=== PATIENT | female | born 1990 | race Caucasian/White ===

== ENCOUNTER → 2020-04-28 13:28 | Outpatient (BNVA) | payer MEDICAID, SELFPAY | PROVIDERS: Visit Provider Advanced Practice Midwife | DX: Z32.01 Encounter for pregnancy test, result positive (principal) | CPT/HCPCS: 99212 ==

== ENCOUNTER → 2020-06-10 14:00 | Outpatient (BNVA) | payer MEDICAID, SELFPAY | PROVIDERS: Visit Provider Advanced Practice Midwife | CPT/HCPCS: 99212 ==

== ENCOUNTER 2020-06-18 12:52 | Outpatient (REF) | payer MEDICAID, SELFPAY ==
[2020-06-18 16:33] LABS: CT PCR NOT DETECTED (Not Detect.); NG PCR NOT DETECTED (Not Detect.)
[2020-06-18 18:13] LABS: MANUAL DIFF FLAG NO
[2020-06-18 18:21] LABS: Basophils Percent Auto 0.2 % (0-2); Eosinophils Absolute Auto 0.1 X10*3/uL (0.0-0.4); Eosinophils Percent Auto 1.2 % (0-4); Hemoglobin 11.4 g/dl (12.0-16.0); Imm Gran Abs Auto 0.02 X10*3/uL (0.00-0.03); Imm Gran Pct Auto 0.2 % (0.0-0.4); Lymphocytes Absolute Auto 1.6 X10*3/uL (1.2-4.9); Lymphocytes Percent Auto 17.5 % (20-40); Mean Corpuscular HGB Conc 32.6 g/dl (31.0-35.0); Mean Corpuscular Hemoglobin 26.8 pg (27.0-33.0); Mean Corpuscular Volume 82.2 fL (80-98); Mean Platelet Volume 12.1 fL (9.4-12.3); Monocytes Absolute Auto 0.4 X10*3/uL (0.1-1.2); Monocytes Percent Auto 4.6 % (2-11); Neutrophils Absolute Auto 6.8 X10*3/uL (2.0-8.3); Neutrophils Percent Auto 76.3 % (45-73); Platelet Count 223 X10*3/uL (160-400); Red Blood Count 4.26 X10*6/uL (4.20-5.50); Red Cell Distribution Width 14.6 % (11.0-16.0); White Blood Count 8.9 X10*3/uL (4.8-10.8)
[2020-06-18 18:35] LABS: Glucose 1 Hour PP 50gm Dose 72 mg/dL (60-140)
[2020-06-18 18:46] LABS: Amphetamine Screen Urine Not Detected (Not Detect); Barbiturates, Urine Not Detected (Not Detect); Benzodiazepines Screen Urine Not Detected (Not Detect); Cannabinoid Screen Urine Not Detected (Not Detect); Cocaine Screen Urine Not Detected (Not Detect); Opiate Screen Urine Not Detected (Not Detect); Phencyclidine Screen Urine Not Detected (Not Detect)
[2020-06-18 19:01] LABS: Syphilis Screen Nonreactive (Nonreactive)
[2020-06-19 09:32] LABS: HIV AB/AG Nonreactive (Nonreactive); HIV Num 1 0.06 S/CO (0.00-0.99); ~Hepatitis C Antibody Nonreactive (Nonreactive)
[2020-06-19 09:39] LABS: HBsAGNum1 0.19 S/CO (0.00-0.99); Hepatitis B Surface Antigen Negative (Negative)
[2020-06-19 15:13] LABS: BV Int Neg Control Negative (Negative); BV Int Pos Control Positive (Positive)
== END 2020-06-18 12:53 | disposition home or self-care (01) ==
LOC: HO.LAB 12:52
PROVIDERS: PCP Family Medicine; Visit Provider Advanced Practice Midwife
DX: O99.891 Other specified diseases and conditions complicating pregnancy (principal); M54.9 Dorsalgia, unspecified; N89.8 Other specified noninflammatory disorders of vagina; Z20.2 Contact with and (suspected) exposure to infections with a predominantly sexual mode of transmission
CPT/HCPCS: 80307; 81003; 85025; 86762; 86780; 86787; 86803; 86850; 86900; 86901; 87086; 87340; 87389; 87480; 87491; 87510; 87591; 87660; 88142; 99212

== ENCOUNTER 2020-06-24 10:35 | Outpatient (REF) | payer MEDICAID, SELFPAY ==
--- NOTE | ~2020-06-24 | US_ITS ---
EXAMINATION: US OB LIMITED CLINICAL INFORMATION: Size and dates. COMPARISON: None TECHNIQUE: Transabdominal imaging of the pelvis is performed. FINDINGS: The fetus is in longitudinal lie with likely breech presentation. On biometry, The biparietal diameter measures 3.55 cm corresponding to 17 weeks 0 days Occipital frontal diameter measures 4.49 cm corresponding to 16 weeks 6 days Head circumference measures 13.35 cm corresponding to 17 weeks 0 days Abdominal circumference measures 10.95 cm corresponding to 16 weeks 6 days Femoral length measures 2.09 cm corresponding to 16 weeks 2 days. The composite ultrasound gestational age measures 16 weeks 6 days and EDWIN of 12/03/2020. There is movement. heart rate measures 138 bpm. The placenta is anterior. The estimated weight is 162 g which corresponds to 0 lbs and 6 ounces. This corresponds to 87 LMP percentile. There is adequate amniotic fluid. US/US OB limited IMPRESSION: Single live intrauterine fetus in breech presentation. The gestational age corresponds to 16 weeks 6 days and EDWIN of 12/03/2020.
== END 2020-06-24 10:36 | disposition home or self-care (01) ==
LOC: HO.US 10:35
PROVIDERS: Visit Provider Advanced Practice Midwife
DX: Z34.90 Encounter for supervision of normal pregnancy, unspecified, unspecified trimester (principal)
CPT/HCPCS: 76815

== ENCOUNTER → 2020-07-16 13:50 | Outpatient (BNVA) | payer MEDICAID, SELFPAY | PROVIDERS: PCP Family Medicine; Visit Provider Advanced Practice Midwife | DX: O35.9XX0 Maternal care for (suspected) fetal abnormality and damage, unspecified, not applicable or unspecified (principal); Z3A.18 18 weeks gestation of pregnancy | CPT/HCPCS: 81003; 99212 ==

== ENCOUNTER 2020-07-23 11:03 | Outpatient (REF) | payer MEDICAID, SELFPAY ==
--- NOTE | ~2020-07-23 | US_ITS ---
EXAMINATION: US OBSTETRICAL CLINICAL INFORMATION: 30-year-old at 21.0 weeks of gestation Insufficient care Screening for anomaly COMPARISON: 06/24/2020 TECHNIQUE: Real-time transabdominal ultrasound was performed using C1-5 megahertz transducer. FINDINGS: A single, active, fetus is seen in breech presentation. The placenta is anterior without previa, and the amniotic fluid volume is wnl. MEASUREMENTS: 1. Biparietal Diameter: 4.7 cm; 20.2 wks 2. Occipital Frontal Diameter: 6.3 cm 3. Head Circumference: 18.0 cm; 20.4 wks 4. Abdominal Circumference: 16.6 cm; 21.5 wks 5. Femur Length: 3.4 cm; 20.5 wks 6. Humerus Length: 2.3 cm; 21.1 wks 7. Tibia Length: 3.2 cm; 21.5 wks 8. Ulna Length: 3.3 cm; 22.5 wks 9. Lateral ventricle: 0.6 cm 10. Cerebellum: 1.95 cm; 20.0 wks 11. Cisterna Magna: 0.5 cm 12. Nuchal Fold: 5.9 mm 13. Heart Rate: 142 beats per minute Rt ovary: normal Lt ovary: normal Cervical length 6.4 cm on T/A. GESTATIONAL AGE: 1. Established GA: 21.0 wks 2. GA from [facility]: 20.6 wks ESTIMATED DATE OF DELIVERY: 1. Established EDWIN: 12/03/2020 2. EDWIN from [facility]: 12/04/2020 ANATOMY: The visualized anatomy includes but not limited to: 1. Cranium: Normal 2. Intracranial anatomy: cavum septum pellucidi, lateral ventricles, choroid plexus, cerebellum, posterior fossa, third and fourth ventricles. 3. face: orbits, lip/palate, profile, nasal bone 4. Heart: four-chamber view of the heart, ventricular septum, foramen ovale, pulmonary vein, left and right outflow tracts, three-vessel view, 3 vessel trachea view, aortic and ductal arches, situs.. 5. Diaphragm: Normal 6. Abdominal wall: Normal 7. Cord Insertion: Normal 8. Spine: Cervical, thoracic, lumbar, sacral. 9. Stomach: Normal size and shape 10. Right Kidney: Normal 11. Left Kidney: Normal 12. 3 vessel cord: Normal 13. Upper extremity: Open hands, fifth digit. 14. Lower extremity: Tibia, fibula, bilateral feet. 15. Bladder: Normal 16. Genitalia: Female, patient aware US/US OB /maternal det add IMPRESSION: 1. Single, living, intrauterine with appropriate biometry. 2. Normal survey DISCUSSION: I reviewed today's ultrasound findings. We discussed the limitations of ultrasound in diagnosing aneuploidy and other congenital abnormalities. I reviewed the differences between screening test and diagnostic test. Amniocentesis was discussed and declined. She was informed that the baseline incidence of congenital abnormalities is approximately 3-5%. Not all these conditions are diagnosable in utero. RECOMMENDATIONS: 1. f/u PRN Thank you for allowing me to participate in her care. Total time 20 minutes. The time spent was devoted to counseling the patient about the disease and diagnosis, coordinating care including reviewing her records, pertinent lab data and studies, as well as discussing diagnostic evaluation and workup, plan therapeutic interventions and future disposition of care. This includes any additional research needed to obtain further information in formulating the plan of care of this patient. This note was generated with a voice recognition program. Please excuse any errors which may have been overlooked during my review of this note. Sometimes these errors may affect the content or meaning of a given sentence.
== END 2020-07-23 11:04 | disposition home or self-care (01) ==
LOC: HO.US 11:03
PROVIDERS: Visit Provider Advanced Practice Midwife
DX: O35.9XX0 Maternal care for (suspected) fetal abnormality and damage, unspecified, not applicable or unspecified (principal); O09.32 Supervision of pregnancy with insufficient antenatal care, second trimester; Z3A.21 21 weeks gestation of pregnancy
CPT/HCPCS: 76812

== ENCOUNTER → 2020-08-20 10:05 | Outpatient (BNVA) | payer MEDICAID, SELFPAY | PROVIDERS: PCP Family Medicine; Visit Provider Advanced Practice Midwife | DX: O99.212 Obesity complicating pregnancy, second trimester (principal); E66.8 Other obesity; Z3A.23 23 weeks gestation of pregnancy | CPT/HCPCS: 81003; 99212 ==

== ENCOUNTER 2020-09-17 10:02 | Outpatient (REF) | payer MEDICAID, SELFPAY ==
[2020-09-17 13:42] LABS: Hematocrit 31.6 % (37-47); Hemoglobin 10.4 g/dl (12.0-16.0); Mean Corpuscular HGB Conc 32.9 g/dl (31.0-35.0); Mean Corpuscular Hemoglobin 27.7 pg (27.0-33.0); Mean Corpuscular Volume 84.3 fL (80-98); Mean Platelet Volume 11.1 fL (9.4-12.3); Platelet Count 229 X10*3/uL (160-400); Red Blood Count 3.75 X10*6/uL (4.20-5.50); Red Cell Distribution Width 13.7 % (11.0-16.0); White Blood Count 9.4 X10*3/uL (4.8-10.8)
[2020-09-17 14:20] LABS: Glucose 1 Hour PP 50gm Dose 73 mg/dL (60-140)
[2020-09-17 14:39] LABS: Syphilis Screen Nonreactive (Nonreactive)
== END 2020-09-17 10:03 | disposition home or self-care (01) ==
LOC: HO.LAB 10:02
PROVIDERS: PCP Family Medicine; Visit Provider Advanced Practice Midwife
DX: O99.212 Obesity complicating pregnancy, second trimester (principal); E66.8 Other obesity; Z3A.27 27 weeks gestation of pregnancy
CPT/HCPCS: 36415; 81003; 85027; 86780; 99212

== ENCOUNTER → 2020-10-01 10:11 | Outpatient (BNVA) | payer MEDICAID, SELFPAY | PROVIDERS: PCP Family Medicine; Visit Provider Advanced Practice Midwife | DX: O99.013 Anemia complicating pregnancy, third trimester (principal); D64.9 Anemia, unspecified; O99.213 Obesity complicating pregnancy, third trimester; E66.8 Other obesity; Z3A.29 29 weeks gestation of pregnancy | CPT/HCPCS: 99212 ==

== ENCOUNTER → 2020-10-08 13:56 | Outpatient (BNVA) | payer MEDICAID, SELFPAY | PROVIDERS: Visit Provider Advanced Practice Midwife | DX: O09.93 Supervision of high risk pregnancy, unspecified, third trimester (principal); O99.213 Obesity complicating pregnancy, third trimester; E66.8 Other obesity; Z3A.30 30 weeks gestation of pregnancy | CPT/HCPCS: 59025; 99212 ==

== ENCOUNTER 2020-10-15 14:03 | Outpatient (REF) | payer MEDICAID, SELFPAY ==
--- NOTE | ~2020-10-15 | US_ITS ---
EXAMINATION: OBSTETRICAL ULTRASOUND, Follow up HISTORY: 30-year-old at 33.0 weeks of gestation High BMI Size date discrepancy COMPARISON: 07/23/2020 TECHNIQUE: Real time transabdominal imaging with color and M-mode Doppler. PRESENTATION: Vertex PLACENTA LOCATION: Anterior without previa AMNIOTIC FLUID: ZACARIAS 6.2 cm MEASUREMENTS: 1. Biparietal Diameter: 8.3 cm; 33.3 wks 2. Head Circumference: 31.2 cm; 34.6 wks 3. Abdominal Circumference: 29.5 cm; 33.4 wks 4. Femur Length: 6.3 cm; 32.4 wks 5. Heart Rate: 155 beats per minute WEIGHT: EFW: 2171 grams (4 lbs 13 oz) -- 51 %. BIOPHYSICAL PROFILE: Motion: 2 Tone: 2 Breathin Amniotic Fluid: 2 Total score: 10/17 GESTATIONAL AGE: 1. Established GA: 33.0 wks 2. GA from AUA: 33.5 wks ESTIMATED DATE OF DELIVERY: 1. Established EDWIN: 12/03/2020 2. EDWIN from AUA: 11/28/2020 US/ OB follow up IMPRESSION: 1. A single active fetus is in vertex presentation 2. Size equals dates 3. BPP 10/17 4. ZACARIAS is at the low end of normal. She is reporting increased the vaginal discharge. Reports that the discharge is the heaviest overnight and she has to wear a pad. Denies contractions, intrauterine tenderness or fever. I informed the patient that the ZACARIAS is at the low end of normal. Given that she is experiencing increased vaginal discharge, I suggest that she proceed to your office for rule out the rupture membranes. She is to return in 2 weeks for follow-up evaluation if she rules out for rupture membranes. Thank you very much for this referral. Total time 30 minutes. The time spent was devoted to counseling the patient about the disease and diagnosis, coordinating care including reviewing her records, pertinent lab data and studies, as well as discussing diagnostic evaluation and workup, plan therapeutic interventions and future disposition of care. This includes any additional research needed to obtain further information in formulating the plan of care of this patient. This note was generated with a voice recognition program. Please excuse any errors which may have been overlooked during my review of this note. Sometimes these errors may affect the content or meaning of a given sentence.
== END 2020-10-15 14:04 | disposition home or self-care (01) ==
LOC: HO.US 14:03
PROVIDERS: Visit Provider Advanced Practice Midwife
DX: O36.63X0 Maternal care for excessive fetal growth, third trimester, not applicable or unspecified (principal); O99.213 Obesity complicating pregnancy, third trimester; E66.8 Other obesity; O26.893 Other specified pregnancy related conditions, third trimester; N89.8 Other specified noninflammatory disorders of vagina; O26.843 Uterine size-date discrepancy, third trimester; Z3A.33 33 weeks gestation of pregnancy
CPT/HCPCS: 76816; 99212

== ENCOUNTER 2020-10-15 16:12 | Outpatient (REF) | payer MEDICAID, SELFPAY ==
[2020-10-15 20:37] LABS: Fetal Fibronectin Negative (Negative)
[2020-10-16 02:28] LABS: CT PCR NOT DETECTED (Not Detect.); NG PCR NOT DETECTED (Not Detect.)
[2020-10-16 10:58] LABS: BV Int Neg Control Negative (Negative); BV Int Pos Control Positive (Positive)
== END 2020-10-15 16:13 | disposition home or self-care (01) ==
LOC: HO.LAB 16:12
PROVIDERS: Visit Provider Advanced Practice Midwife
DX: O36.80X0 Pregnancy with inconclusive fetal viability, not applicable or unspecified (principal); Z3A.33 33 weeks gestation of pregnancy
CPT/HCPCS: 82731; 87081; 87147; 87480; 87491; 87510; 87591; 87660

== ENCOUNTER 2020-10-22 13:26 | Outpatient (REF) | payer MEDICAID, SELFPAY ==
--- NOTE | ~2020-10-22 | US_ITS ---
EXAMINATION: US OBSTETRICAL (BIOPHYSICAL PROFILE) CLINICAL INFORMATION: 30-year-old at the 34.0 weeks of gestation High BMI COMPARISON: 10/15/1990 TECHNIQUE: Biophysical profile is performed over 30 minutes with assessment of breathing, gross body movement, tone, and qualitative amniotic fluid volume. FINDINGS: POSITION: Cephalic PLACENTA: Anterior without previa AMNIOTIC FLUID INDEX: 8.9 cm CARDIAC ACTIVITY: 136 beats per minute BIOPHYSICAL PROFILE: Motion: 2 Tone: 2 Breathin Amniotic Fluid: 2 The total biophysical score is 8/8 US/US OB biophysical profile IMPRESSION: 1. Single intrauterine gestation in vertex position. 2. Reassuring BPP and ZACARIAS Thank you for allowing me to participate in her care. This note was generated with a voice recognition program. Please excuse any errors which may have been overlooked during my review of this note. Sometimes these errors may affect the content or meaning of a given sentence.
== END 2020-10-22 13:27 | disposition home or self-care (01) ==
LOC: HO.US 13:26
PROVIDERS: PCP Family Medicine; Visit Provider Advanced Practice Midwife
DX: O36.63X0 Maternal care for excessive fetal growth, third trimester, not applicable or unspecified (principal); O99.213 Obesity complicating pregnancy, third trimester; E66.8 Other obesity; Z3A.34 34 weeks gestation of pregnancy
CPT/HCPCS: 76819

== ENCOUNTER → 2020-10-26 10:08 | Outpatient (BNVA) | payer MEDICAID, SELFPAY | PROVIDERS: Visit Provider Advanced Practice Midwife | DX: O09.893 Supervision of other high risk pregnancies, third trimester (principal); O26.893 Other specified pregnancy related conditions, third trimester; R12 Heartburn; Z3A.34 34 weeks gestation of pregnancy | CPT/HCPCS: 59025; 81003; 99212 ==

== ENCOUNTER 2020-10-26 11:05 | Outpatient (REF) | payer MEDICAID, SELFPAY ==
--- NOTE | ~2020-10-26 | US_ITS ---
EXAMINATION: US OBSTETRICAL (BIOPHYSICAL PROFILE) CLINICAL INFORMATION: Ultrasound OB biophysical profile. COMPARISON: Ultrasound OB biophysical profile 10/22/2020 TECHNIQUE: Ultrasound of the pelvis is performed. Biophysical profile is performed over 30 minutes with assessment of breathing, gross body movement, tone, and qualitative amniotic fluid volume. Each matrix is scored 0 or 2, depending if the metric is present. Maximum total score possible is 8. Examination is not intended to assess for anomalies. FINDINGS: POSITION: Cephalic PLACENTA: Anterior AMNIOTIC FLUID INDEX: 11.0 cm CARDIAC ACTIVITY: 132 beats per minute BIOPHYSICAL PROFILE: Motion: 2 Tone: 2 Breathin Amniotic Fluid: 2 Total score: 8/8 US/US OB biophysical profile IMPRESSION: 1. Single intrauterine gestation in cephalic position with anterior placenta. 2. Total biophysical score is 8/8 (scale 0-8). 3. Amniotic fluid index 11.0 cm. 4. cardiac activity 132 beats per minute.
== END 2020-10-26 11:06 | disposition home or self-care (01) ==
LOC: HO.US 11:05
PROVIDERS: PCP Family Medicine; Visit Provider Advanced Practice Midwife
DX: O36.8390 Maternal care for abnormalities of the fetal heart rate or rhythm, unspecified trimester, not applicable or unspecified (principal); Z3A.00 Weeks of gestation of pregnancy not specified
CPT/HCPCS: 59025; 76819; 81003; 99212

== ENCOUNTER 2020-10-29 11:34 | Outpatient (REF) | payer MEDICAID, SELFPAY ==
--- NOTE | ~2020-10-29 | US_ITS ---
EXAMINATION: OBSTETRICAL ULTRASOUND, Follow up HISTORY: 30-year-old at 34.0 weeks of gestation High BMI Size date discrepancy COMPARISON: 10/26/2020 TECHNIQUE: Real time transabdominal imaging with color and M-mode Doppler. PRESENTATION: Vertex PLACENTA LOCATION: Anterior without previa AMNIOTIC FLUID: Maximum vertical pocket 4.0 cm MEASUREMENTS: 1. Biparietal Diameter: 8.8 cm; 35.3 wks 2. Head Circumference: 32.2 cm; 36.3 wks 3. Abdominal Circumference: 31.5 cm; 35.4 wks 4. Femur Length: 6.6 cm; 34.0 wks 5. Heart Rate: 132 beats per minute WEIGHT: EFW: 2609 grams (5 lbs 12 oz) -- 78 %. BIOPHYSICAL PROFILE: Motion: 2 Tone: 2 Breathin Amniotic Fluid: 2 Total score: 8/8 UA Doppler showed SD ratio of 2.5. GESTATIONAL AGE: 1. Established GA: 34.0 wks 2. GA from AUA: 35.3 wks ESTIMATED DATE OF DELIVERY: 1. Established EDWIN: 12/10/2020 2. EDWIN from AUA: 11/30/2020 US/US OB velocimetry umbilical ar IMPRESSION: 1. A single active fetus is in vertex presentation 2. Size equals dates, EFW corresponds to 78th percentile 3. Reassuring biophysical profile and normal umbilical artery Doppler I reviewed today's findings and gave her reassurance. We discussed the limitations of the estimating weights of ultrasound. During this , her amniotic fluid volume has been in the lower end of normal. Today the ZACARIAS was 7.0 cm. However maximum vertical pocket measuring 4.0 cm was noted. She denies leakage of fluid. I reviewed with her the the clinical significance of low amniotic fluid volume. I reassured her that even though the amniotic fluid index is at the low end of normal, today's finding is not consistent with oligohydramnios. She reports that having had normal 1 hour GLT. A follow-up in approximately 3 weeks is suggested (not scheduled). Total time 30 minutes. The time spent was devoted to counseling the patient about the disease and diagnosis, coordinating care including reviewing her records, pertinent lab data and studies, as well as discussing diagnostic evaluation and workup, plan therapeutic interventions and future disposition of care. This includes any additional research needed to obtain further information in formulating the plan of care of this patient. This note was generated with a voice recognition program. Please excuse any errors which may have been overlooked during my review of this note. Sometimes these errors may affect the content or meaning of a given sentence.
== END 2020-10-29 11:35 | disposition home or self-care (01) ==
LOC: HO.US 11:34
PROVIDERS: Visit Provider Advanced Practice Midwife
DX: O36.63X0 Maternal care for excessive fetal growth, third trimester, not applicable or unspecified (principal)
CPT/HCPCS: 76816; 76820

== ENCOUNTER 2020-11-05 12:11 | Outpatient (REF) | payer MEDICAID, SELFPAY ==
--- NOTE | ~2020-11-05 | US_ITS ---
EXAMINATION: US OBSTETRICAL (BIOPHYSICAL PROFILE) CLINICAL INFORMATION: 30-year-old at the 36.0 weeks of gestation Size date discrepancy COMPARISON: 10/29/2020 TECHNIQUE: Biophysical profile is performed over 30 minutes with assessment of breathing, gross body movement, tone, and qualitative amniotic fluid volume. FINDINGS: POSITION: Cephalic PLACENTA: Anterior without previa AMNIOTIC FLUID INDEX: 8.3 cm CARDIAC ACTIVITY: 139 beats per minute BIOPHYSICAL PROFILE: Motion: 2 Tone: 2 Breathin Amniotic Fluid: 2 The total biophysical score is 8/8 Umbilical artery Doppler showed SD ratio of 2.5 US/US OB biophysical profile IMPRESSION: 1. Single intrauterine gestation in vertex position. 2. Reassuring BPP and ZACARIAS 3. Umbilical artery showed the normal SD ratio. The best EDWIN is 12/03/2020. Thank you for allowing me to participate in her care. This note was generated with a voice recognition program. Please excuse any errors which may have been overlooked during my review of this note. Sometimes these errors may affect the content or meaning of a given sentence.
--- NOTE | ~2020-11-05 | US_ITS ---
EXAMINATION: US OBSTETRICAL (BIOPHYSICAL PROFILE) CLINICAL INFORMATION: 30-year-old at the 36.0 weeks of gestation Size date discrepancy COMPARISON: 10/29/2020 TECHNIQUE: Biophysical profile is performed over 30 minutes with assessment of breathing, gross body movement, tone, and qualitative amniotic fluid volume. FINDINGS: POSITION: Cephalic PLACENTA: Anterior without previa AMNIOTIC FLUID INDEX: 8.3 cm CARDIAC ACTIVITY: 139 beats per minute BIOPHYSICAL PROFILE: Motion: 2 Tone: 2 Breathin Amniotic Fluid: 2 The total biophysical score is 8/8 Umbilical artery Doppler showed SD ratio of 2.5 US/US OB velocimetry umbilical ar IMPRESSION: 1. Single intrauterine gestation in vertex position. 2. Reassuring BPP and ZACARIAS 3. Umbilical artery showed the normal SD ratio. The best EDWIN is 12/03/2020. Thank you for allowing me to participate in her care. This note was generated with a voice recognition program. Please excuse any errors which may have been overlooked during my review of this note. Sometimes these errors may affect the content or meaning of a given sentence.
== END 2020-11-05 12:12 | disposition home or self-care (01) ==
LOC: HO.US 12:11
PROVIDERS: Visit Provider Advanced Practice Midwife
DX: O99.213 Obesity complicating pregnancy, third trimester (principal); E66.8 Other obesity; O36.63X0 Maternal care for excessive fetal growth, third trimester, not applicable or unspecified
CPT/HCPCS: 76819; 76820

== ENCOUNTER 2020-11-19 09:14 | Outpatient (REF) | payer MEDICAID, SELFPAY ==
[2020-11-20 13:35] LABS: CT PCR NOT DETECTED (Not Detect.); NG PCR NOT DETECTED (Not Detect.)
== END 2020-11-19 09:15 | disposition home or self-care (01) ==
LOC: HO.LAB 09:14
PROVIDERS: PCP Family Medicine; Visit Provider Advanced Practice Midwife
DX: O09.893 Supervision of other high risk pregnancies, third trimester (principal); O99.213 Obesity complicating pregnancy, third trimester; E66.8 Other obesity; Z3A.38 38 weeks gestation of pregnancy
CPT/HCPCS: 59025; 81003; 87081; 87147; 87491; 87591; 99212

== ENCOUNTER → 2021-02-08 10:48 | Outpatient (BNVA) | payer MEDICAID, SELFPAY | PROVIDERS: PCP Family Medicine; Visit Provider Advanced Practice Midwife | DX: Z39.2 Encounter for routine postpartum follow-up (principal); Z39.1 Encounter for care and examination of lactating mother | CPT/HCPCS: 99212 ==

== ENCOUNTER 2021-02-15 11:48 | Outpatient (REF) | payer MEDICAID, SELFPAY ==
[2021-02-15 14:43] LABS: CT PCR DETECTED (Not Detect.); NG PCR NOT DETECTED (Not Detect.)
[2021-02-16 10:53] LABS: BV Int Neg Control Negative (Negative); BV Int Pos Control Positive (Positive)
== END 2021-02-15 11:49 | disposition home or self-care (01) ==
LOC: HO.LAB 11:48
PROVIDERS: PCP Family Medicine; Visit Provider Advanced Practice Midwife
DX: Z39.2 Encounter for routine postpartum follow-up (principal); Z39.1 Encounter for care and examination of lactating mother; R10.2 Pelvic and perineal pain; N89.8 Other specified noninflammatory disorders of vagina
CPT/HCPCS: 87480; 87491; 87510; 87591; 87660; 99212

== ENCOUNTER 2023-11-14 17:07 | Outpatient (REF) | payer MEDICAID, SELFPAY ==
[2023-11-15 03:21] LABS: CT PCR NOT DETECTED (Not Detect.); NG PCR NOT DETECTED (Not Detect.)
== END 2023-11-14 17:08 | disposition home or self-care (01) ==
LOC: HO.HHCLNP 17:07
PROVIDERS: Visit Provider Advanced Practice Midwife
DX: Z11.3 Encounter for screening for infections with a predominantly sexual mode of transmission (principal)
CPT/HCPCS: 87491; 87591

== ENCOUNTER 2023-12-19 16:46 | Outpatient (REF) | payer MEDICAID, SELFPAY ==
[2023-12-22 20:13] LABS: HPV mRNA E6/E7 Not Detected (Not Detected)
== END 2023-12-19 16:47 | disposition home or self-care (01) ==
LOC: HO.HHCLNP 16:46
PROVIDERS: Visit Provider Advanced Practice Midwife
DX: Z12.4 Encounter for screening for malignant neoplasm of cervix (principal)
CPT/HCPCS: 36415; 87624; 88175

== ENCOUNTER 2024-03-19 10:40 | Outpatient (REF) | payer MEDICAID, SELFPAY ==
[2024-03-19 11:26] LABS: Estimated Average Glucose 100 mg/dL; Hemoglobin A1C 94.0054 umol/L; Hemoglobin A1c % 5.1 % (<6.0)
[2024-03-19 11:59] LABS: Alanine Aminotransferase 19 U/L (0-31); Alkaline Phosphatase 76 U/L (39-117); Anion Gap 9 (12-20); Aspartate Amino Transferase 19 U/L (5-31); Bilirubin Total 0.4 mg/dL (0.0-1.0); Blood Urea Nitrogen 18 mg/dL (9-16); Calcium 9.2 mg/dL (8.4-10.2); Carbon Dioxide 27 mmol/L (22-29); Chloride 109 mmol/L (96-108); Cholesterol 137 mg/dL (<200); Estimated Glomerular Filt Rate > 60; Glucose Random 89 mg/dL (60-115); HDL Cholesterol 42 mg/dL (>40); LDL Cholesterol Calculated 80 mg/dL (<100); Sodium 141 mmol/L (135-145); Total Protein 7.6 g/dL (6.5-8.0); Triglycerides 75 mg/dL (<150)
[2024-03-19 12:03] LABS: TSH reflex Free T4 2.19 uIU/mL (0.32-4.0)
[2024-03-19 12:08] LABS: Reflex LDLD? No
== END 2024-03-19 10:41 | disposition home or self-care (01) ==
LOC: HO.HHCL 10:40
PROVIDERS: Visit Provider Family Medicine
DX: E66.813 Obesity, class 3 (principal); E66.01 Morbid (severe) obesity due to excess calories; Z68.41 Body mass index [BMI] 40.0-44.9, adult
CPT/HCPCS: 36415; 80053; 80061; 83036; 84443

== ENCOUNTER 2024-08-12 09:06 | Outpatient (REF) | payer MEDICAID, SELFPAY ==
--- NOTE | 2024-08-12 09:09 | EMG_ITS ---
Bilateral median and ulnar motor and sensory studies were performed. Bilateral radial sensory study was performed, bilateral median and lateral antecubital brachial sensory studies were performed and paraspinal muscles were tested with a needle. IMPRESSION: This is an unremarkable study with no significant finding. MD BHARAT Austin/SALLY / [id number]
--- OUTSIDE RECORDS SUMMARY | 2024-08-12 09:54 | XMS_ITS | Encounter Summary ---
Author Organization [employer] Address [address] [place] [address] [address] [place] [address] Care Team Providers Care Sales Promotion Representative Name Role Phone Elana Prince MD Primary Care Provider [phone] Reason for Referral * Neurology (Routine) - Authorized Specialty Diagnoses / Procedures Referred By Contac t Referred To Contact Diagnoses Bilateral hand numbness Procedures EMG Elana Prince MD [address] [place] [address] Phone: tel: fax: [address] Phone: tel: fax: Referral ID Status Reason Start Date Expiration Date V isits Requested Visits Authorized [id number] Authorized 08/07/2024 08/07/2025 1 1 Encounter Details Date Type Department Care Team (Late st Contact Info) Description 08/07/2024 Orders Only [facility] [address] [place], [place] [phone] Elana Prince MD [address] [place] [address] Bilateral hand numbness (Primary Dx) Social History Tobacco Use Types Packs/Day Years Used Date Smoking Tobacco: Never Smokeless Tobacco: Never Alcohol Use Standard Drinks/Week Comments Not Currently 0 (1 standard drink = 0.6 oz pur e alcohol) Depression Answer Date Recorded Patient Health Questionnaire-9 Score 15 03/19/2024 Patient Health Questionnaire-9 Score 15 03/19/2024 Last PHQ-9: Questionnaire Data Not on file 0 03/19/2024 Housing Stability Answer Date Recorded What is your housing situation today? I have shoaib cardozo 07/07/[address] you li ve. Do you have problems with any of the following? None of the above 07/07/2024 Food Insecurity Answer Date Recorded Within the past 12 months, y ou worried that your food would run out before you got money to buy more: Never True 07/07/2024 Within the past 12 months,th e food you bought just didn't last and you didn't have enough money to get more: Never True Transportation Answer Date Recorded In the past 12 months, has l ack of transportation kept you from medical appts, meetings, work or from getting things needed for daily living? No 07/07/2024 Utilities Answer Date Recorded In the past 12 months, has t he electric, gas, oil or water company threatened to shut off services in your home? No 07/07/2024 Depression Answer Date Recorded Patient Health Questionnaire-2 Score 2 03/19/2024 Internet Access Answer Date Recorded Internet Access Q1 Yes 07/07/2024 Internet Access Q2 Not on file 07/07/2024 Comments No Sex and Gender Information Value Date Recorded Sex Assigned at Female 01/09/2022 10:20 AM EDT Legal Sex Female 10:20 AM EDT Gender Identity Female 01/09/2022 10:20 AM EDT Sexual Orientation Choose not to disclose 2021 10:20 AM EDT documented as of this encounter Plan of Treatment Upcoming Encounters Date Type Department Care Team (Late st Contact Info) Description 10/06/2024 1:00 PM EDT Office Visit [facility] MED[facility] [address] [place] [address] Elana Prince MD [address] [place] [address] Scheduled Orders Name Type Priority Associated Diagnoses Orde r Schedule EMG Neurology Routine Bilateral hand numbness Expected: 08/07/2024 (Approximate), Expires: 08/07/2025 documented as of this encounter Visit Diagnoses Diagnosis Bilateral hand numbness- Primary Disturbance of skin sensation documented in this encounter Additional Health Concerns Assessment Noted Time PHQ-9 Depression Total Score: 15 025 9:53 AM EST documented as of this encounter Care Teams Sales Promotion Representative Relationship Specialty Start Date End Date Elana Prince MD [address] [place] [address] PCP - General Family Medicine 03/26/15 documented as of this encounter
== END 2024-08-12 09:07 | disposition home or self-care (01) ==
LOC: HO.NEURO 09:06
PROVIDERS: PCP Family Medicine; Visit Provider Family Medicine
DX: R20.0 Anesthesia of skin (principal)
CPT/HCPCS: 95886; 95913

== ENCOUNTER 2024-11-20 15:17 | Outpatient (REF) | payer MEDICAID, SELFPAY ==
--- OUTSIDE RECORDS SUMMARY | 2024-11-18 09:30 | XMS_ITS | Encounter Summary ---
Author Organization [facility] Address [address] [facility] [address] [place] [phone] Phone Care Team Providers Care Director Telecommunications Name Role Phone Elana Prince MD Primary Care Provider [phone] Reason for Visit * Physical Therapy (Routine) - Authorized Specialty Diagnoses / Procedures Referred By Contac t Referred To Contact Physical Therapy Diagnoses Encounter for rehabilitation Elana Prince MD Phone: tel: fax: [facility] [address] [place] [address] Phone: tel: Referral ID Status Reason Start Date Expiration Date V isits Requested Visits Authorized [id number] Authorized 07/14/2024 07/14/2025 20 20 Encounter Details Date Type Department Care Team (Late st Contact Info) Description 11/18/2024 9:30 AM EDT Office Visit [facility] [address] [place] [address] Elana Prince MD [address] [place] [id number] Elly Bronson, PT [address] [place], [place] [phone] Gilmer Fowler [address] [place] [address] Cervical radiculopathy (Primary Dx) Social History Tobacco Use Types Packs/Day Years Used Date Smoking Tobacco: Never Assessed Education Answer Date Recorded Are you interested in more education? Not on dolly e 03/31/2023 Are you concerned about learning? Not on file 03/31/2023 No 03/31/2023 No 03/31/2023 Digital Access Answer Date Recorded No 03/31/2023 No 03/31/2023 Reliable internet access at home? Not on file 03/31/2023 Device with a working camera? Not on file Intimate Partner Violence Answer Date R ecorded Are you denied basic needs s uch as food, clothing, or medical care? No 03/31/2023 In the past 12 months have y ou been in a relationship with a person who hurts, threatens, or tries to control you? No 03/31/2023 Are you denied basic needs s uch as food, clothing, or medical care? No 03/31/2023 In the past 12 months have y ou been in a relationship with a person who hurts, threatens, or tries to control you? No 03/31/2023 Comments Unknown Sex and Gender Information Value Date Recorded Sex Assigned at Not on file Legal Sex Female 12:15 PM EST Gender Identity Not on file Sexual Orientation Not on file documented as of this encounter Progress Notes * Elly Bronson, PT - 11/18/2024 9:30 AM EDT Physical Therapy Treatment Note Patient Name: Janice Nunez Date of : 1990 This patient has attended 2 visits since the onset Physical Therapy. Referring MD: Elana Prince MD [address] [place] [phone] Cervical radiculopathy [M54.12] Precautions/Safety: Asthma (has inhaler on person) Subjective comments: Pt 8 min late to appointment today Pt states she felt okay after IE last week, feels stiff this morning. Pain comments pre-treatment: Moderate pain cervical spine Objective Measures: N/a Interventions: Procedural Interventions Parameters THERAPEUTIC EXERCISE Review of centralizing positions (EXT) Supine on pillow cervical rotation x 10 within pain-free range Supine chin tuck x 10 Seated upper trapezius stretch 30s x 1 each Seated levator scapulae stretch 30s x 1 each Seated scap retractions x 10 Seated chin tucks x 5 Rows red band 2x10 THERAPEUTIC ACTIVITIES N/a NEUROMUSCULAR RE-ED N/a MANUAL THERAPY Supine: STM along B upper trapezius muscles B suboccipital release Gentle manual cervical traction with cervical flexion 15s on 10s off x 4 MODALITIES N/a Home Exercise Program: Access Code: [email or web address] URL: [email or web address] Date: 11/18/2024 Prepared by: Elly Bronson Exercises - Supine Cervical Rotation AROM on Pillow - 1 x daily - 7 x weekly - 2 sets - 10 reps - Supine Deep Neck Flexor Training - Repetitions - 1 x daily - 7 x weekly - 2 reps - to fatigue or loss of form hold - Seated Cervical Retraction - 1 x daily - 7 x weekly - 2 sets - 10 reps - Seated Scapular Retraction - 1 x daily - 7 x weekly - 2 sets - 10 reps - Seated Upper Trapezius Stretch - 1 x daily - 7 x weekly - 1-2 reps - 30s hold - Seated Levator Scapulae Stretch - 1 x daily - 7 x weekly - 1-2 sets - 30s hold - Standing Shoulder Row with Anchored Resistance - 1 x daily - 7 x weekly - 2 sets - 10 reps Assessment: Introduced gentle cervical mobility and stretches along with parascapular strengthening. Good response without reproduction of radicular symptoms if neck kept in more neutral position. Discussed pillow height to minimize radicular sx in night. Dispensed HEP and reviewed with pt, encouraged to perform daily. Plan: Cont with POC Next visit: Review HEP, pec stretching, thoracic mobility, review DNF endurance Elly Bronson, [place] [id number] documented in this encounter Plan of Treatment Upcoming Encounters Date Type Department Care Team (Late st Contact Info) Description 11/25/2024 9:15 AM EDT Office Visit [facility] [address] [place] [address] [place] [address] Elana Prince MD [address] [place] [phone] Sukhdev Luo, [address] [address] [address] Fowler [address] [place] [address] 11/27/2024 9:15 AM EDT Office Visit [facility] [address] [place] [address] Elana Prince MD [address] [place] [address] Sukhdev Luo, [employer]ATOR [address] [place] [address] Mone Clayton [address] [place] [address] 12/02/2024 9:30 AM EDT Office Visit [facility] [address] [place] [address] Elana Prince MD [address] [place] [phone] Elly Bronson, PT [address] [place] [address] [address] Fowler [address] [place] [address] 12/04/2024 9:30 AM EDT Office Visit [facility] [address] [place] [address] Elana Prince MD [address] [place] [address] Elly Bronson, PT [address] [place] [address] 12/09/2024 9:30 AM EDT Office Visit [facility] [address] [place] [address] Elana Prince MD [address] [place] [phone] Elly Bronson, PT [address] [place] [address] [email or web address] documented as of this encounter Visit Diagnoses Diagnosis Cervical radiculopathy- Primary Brachial neuritis or radiculitis nos documented in this encounter Care Teams Director Telecommunications Relationship Specialty Start Date End Date Elana Prince MD [address] [place] [address] PCP - General Family Medicine 07/31/24 documented as of this encounter Additional Source Comments The information contained in this document represents components of the legal health record. It is not the complete legal health record.[facility]
--- NOTE | ~2024-11-20 | US_ITS ---
CLINICAL HISTORY: unknown gestational age Obstetric Ultrasound Comparison: None available Findings: EGA by today's ultrasound: 20 weeks and 3 days. EDWIN by today's ultrasound: 04/09/25. Previously established gestational age: N/A. Biometrics: BPD: Not obtained HC: 18.1 cm AC: 14.9 cm FL: 3.3 cm FHR: 130 bpm. presentation is breech. Placenta is anterior, distance not measured from the internal os. No demonstrated evidence of previa or abruption. Closed cervix. ZACARIAS: Subjectively normal. Impression: Single living intrauterine gestation estimated at 20 weeks and 3 days by today's ultrasound criteria. This document has been electronically signed by: Minerva Piedra MD on 11/20/2024 18:23:19
--- OUTSIDE RECORDS SUMMARY | 2024-11-20 13:00 | XMS_ITS | Encounter Summary ---
Author Organization [employer] Address [address] [facility] 7t [place] [address] Care Team Providers Care Project Development Engineer Name Role Phone Elana Prince MD Primary Care Provider [phone] Reason for Referral * Imaging (Routine) - Authorized Specialty Diagnoses / Procedures Referred By Contradha t Referred To Contact Radiology Diagnoses , unspecified gestational age Procedures US OB Limited 1+ Fetuses Sylvie Lomeli CNM [address] [place] [address] Phone: tel: fax: Referral ID Status Reason Start Date Expiration Date V isits Requested Visits Authorized [id number] Authorized 11/20/2024 11/20/2025 1 1 Reason for Visit * Reason Comments CHW - Office Visit Encounter Details Date Type Department Care Team (Late st Contact Info) Description 11/20/2024 1:00 PM EDT Office Visit [facility] [address] [place], [place] [phone] Sylvie Lomeli CNM [address] [place], [place] [phone] , unspecified gestational age (Primary Dx) Social History Tobacco Use Types Packs/Day Years Used Date Smoking Tobacco: Never Smokeless Tobacco: Never Tobacco Cessation:Counseling Given: Not Answered Alcohol Use Standard Drinks/Week Comments Not Currently [...] Access Q2 Not on file 07/07/2024 Comments Yes Intention Date Recorded Not sure of desire to become (f inding) 11/20/2024 Sex and Gender Information Value Date Recorded Sex Assigned at Female 01/09/2022 10:20 AM EDT Legal Sex Female 10:20 AM EDT Gender Identity Female 01/09/2022 10:20 AM EDT Sexual Orientation Choose not to disclose 2021 10:20 AM EDT documented as of this encounter Last Filed Vital Signs Vital Sign Reading Time Taken Comments Blood Pressure 110/70 11/20/2024 1:03 PM EDT Pulse 88 11/20/2024 1:03 PM EDT Temperature 37.1 C (98.7 F) 11/20/2024 1:03 PM EDT Respiratory Rate 16 11/20/2024 1:03 PM EDT Oxygen Saturation 98% 11/20/2024 1:03 PM EDT Inhaled Oxygen Concentration - - Weight 138 kg (304 lb 6.4 oz) 11/20/2024 1:03 PM EDT Height - - Body Mass Index 46.28 07/07/2024 11:21 AM EDT documented in this encounter Progress Notes * Sylvie Lomeli CNM - 11/20/2024 1:00 PM EDT Subjective Patient ID: Janice Hauser is a 34 y.o. 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 Negative home test 08/2024, positive home test10/16/2024. She was in [place] at the time and unable to be seen until now. Thinks she might feelsome movement. Denies nausea, vomiting or breast tenderness. Not currently taking any medications. LMP 07/01/2024. Last Depo 01/30/2024. Chronic back pain, no recent change. Denies pelvic pain or vaginal bleeding. Last sexually active in 09/2024. No current partner. Pap NIL/HPV neg 12/2023. Back Pain This is a recurrent problem. The current episode started more than 1 year ago. The problem occurs constantly. The problem has been waxing and waning since onset. The pain is present in the lumbar spine. The quality of the pain is described as aching, burning, cramping and stabbing. The pain is at aseverity of 5/10. The pain is The same all the time. The symptoms are aggravated by bending, sitting and standing. Stiffness is present All day. Associated symptoms include headaches, leg pain, numbness, pelvic pain, tingling and weakness. Pertinent negatives include no abdominal pain, bladder incontinence, dysuria, perianal numbness or weight loss. Risk factors include obesity and . Review of Systems Constitutional: Negative for weight loss. Gastrointestinal: Negative for abdominal pain, nausea and vomiting. Genitourinary: Positive for pelvic pain. Negative for bladder incontinence, dysuria and vaginal bleeding. Musculoskeletal: Positive for back pain. Neurological: Positive for tingling, weakness, numbness and headaches. Objective BP 110/70 (BP Location: Left arm, Patient Position: Sitting, BP Cuff Size: Adult long) Pulse 88 Temp 98.7 ??F (37.1 ??C) (Oral) Resp 16 Wt 304 lb 6.4 oz (138 kg) LMP 07/01/2024 SpO2 98% BMI 46.28 kg/m?? Physical Exam Constitutional: Appearance: Normal appearance. Abdominal: Comments: Difficult to assess fundal height, possibly 14 wk? Neurological: Mental Status: She is alert. Psychiatric: Mood and Affect: Mood normal. Behavior: Behavior normal. Assessment/Plan Diagnoses and all orders for this visit: , unspecified gestational age - US OB Transvaginal; Future - POCT , urine manually resulted - hCG, Total, Quantitative; Future For serum hcg and STAT OB ultrasound for dating. Will contact with results and plan. Seek care urgently if bleeding or pelvic pain. Undecided about , if early enough gestational age, she is leaning towards termination. If continuing , would like care at [facility]. Accepts MVI for now. Rx sent in. documented in this encounter Plan of Treatment Scheduled Orders Name Type Priority Associated Diagnoses Orde r Schedule hCG, Total, Quantitative Lab Routine , unspecified gestational age Expected: 11/20/2024 (Approximate), Expires: 11/20/2025 US OB Limited 1+ Fetuses Imaging Routine , unspecified gestational age Expected: 11/20/2024, Expires: 11/20/2025 documented as of this encounter Procedures Procedure Name Priority Date/Time Associated Diagnosis Comments US OB LIMITED 1+ FETUSES STAT 11/20/2024 6:23 PM EDT POCT , URINE Routine 11/20/2024 1:55 PM EDT , unspecified gestational age documented in this encounter Results * US OB Limited 1+ Fetuses (11/20/2024 6:23 PM EDT) Anatomical Region Laterality Modality Body Ultrasound 11/20/2024 6:23 PM EDT Narrative 11/20/2024 6:24 PM EDT [address] [address] Ultrasound Report Signed Patient: Janice Joseph MR#: [id number] : 1990 Acct:[id number] Age/Sex: 34 / F ADM Date: 11/20/24 Loc: HO.US Attending Dr: Sylvie Lomeli CNM Ordering Physician: SYLVIE LOMELI CNM Date of Service: 11/20/24 Procedure(s): US OB limited Accession Number(s): [id number] cc: SYLVIE LOMELI CNM Reason for Exam: unknown gestational age CLINICAL HISTORY: unknown gestational age Obstetric Ultrasound Comparison: None available Findings: EGA by today's ultrasound: 20 weeks and 3 days. EDWIN by today's ultrasound: 04/09/25. Previously established gestational age: N/A. Biometrics: BPD: Not obtained HC: 18.1 cm AC: 14.9 cm FL: 3.3 cm FHR: 130 bpm. presentation is breech. Placenta is anterior, distance not measured from the internal os. No demonstrated evidence of previa or abruption. Closed cervix. ZACARIAS: Subjectively normal. Impression: Single living intrauterine gestation estimated at 20 weeks and 3 days by today's ultrasound criteria. This document has been electronically signed by: Minerva Piedra MD on 11/20/2024 18:23:19 Dictated By: Minerva Arevalo MD Signed By: <Electronically signed by Minerva Arevalo MD in OV> 11/20/241823 DD/ 22 TD/TT: 11/20/241822 Silviculturist: Procedure Note Donotuseinterpreter, Image - 11/20/2024 [place] [address] Ultrasound Report Signed Patient: Janice Joseph#: M [id number] : 1990Acct:[id number] Age/Sex: 34 / FADM Date: 11/20/24 Loc: Attending Dr: Sylvie Lomeli CNM Ordering Physician: SYLVIE LOMELI CNM Date of Service: 11/20/24 Procedure(s): US OB limited Accession Number(s): [id number] cc: SYLVIE LOMELI CNM Reason for Exam: unknown gestational age CLINICAL HISTORY: unknown gestational age Obstetric Ultrasound Comparison: None available Findings: EGA by today's ultrasound: 20 weeks and 3 days. EDWIN by today's ultrasound: 04/09/25. Previously established gestational age: N/A. Biometrics: BPD: Not obtained HC: 18.1 cm AC: 14.9 cm FL: 3.3 cm FHR: 130 bpm. presentation is breech. Placenta is anterior, distance not measured from the internal os. No demonstrated evidence of previa or abruption. Closed cervix. ZACARIAS: Subjectively normal. Impression: Single living intrauterine gestation estimated at 20 weeks and 3 days by today's ultrasound criteria. This document has been electronically signed by: Minerva Piedra MD on 11/20/2024 18:23:19 Dictated By: Minerva Arevalo MD Signed By: <Electronically signed by Minerva Arevalo MD in OV> 11/20/241823 DD/ 22 TD/TT: 11/20/241822 Silviculturist: Sylvie Lomeli CNM IMG OB US PROCEDURES Felipa l Result * (ABNORMAL) POCT , urine manually resulted (11/20/2024 1:55 PM EDT) Preg Test, Ur Positive (A) Negative, Indeterminate, None Detected, Invalid, Specimen unsatisfactory for evaluation, Weakly Positive, 2+ QC Media Lot # [id number] Lot# Expiration Date 10312,[id number] 26 Urine 11/20/2024 1:55 PM EDT Sylvie Lomeli CNM POINT OF CARE TEST ENTER/ EDIT ORDERABLES Final Result documented in this encounter Visit Diagnoses Diagnosis , unspecified gestational age- Primary documented in this encounter Additional Health Concerns Assessment Noted Time PHQ-9 Depression Total Score: 15 025 9:53 AM EST documented as of this encounter Care Teams Project Development Engineer Relationship Specialty Start Date End Date Elana Prince MD [address] [place] [address] PCP - General Family Medicine 03/26/15 documented as of this encounter
--- OUTSIDE RECORDS SUMMARY | 2024-11-20 18:35 | XMS_ITS | Encounter Summary ---
Author Organization [employer] Address [address] [facility] 7t [place] [address] Care Team Providers Care Automatic Stacker Name Role Phone Elana Prince MD Primary Care Provider [phone] Reason for Visit * Reason Onset Date Comments Med Refill 04/07/2024 Encounter Details Date Type Department Care Team ([facility] st Contact Info) Description 04/07/2024 Refill [facility] [address] [place], [place] [phone] Elana Prince MD [address] [place], [place] [phone] Social History Tobacco Use Types Packs/Day Years [...] housing situation today? I have shoaib cardozo 04/12/[address] you li ve. Do you have problems with any of the following? None of the above 04/12/2023 Food Insecurity Answer Date Recorded Within the past 12 months, y ou worried that your food would run out before you got money to buy more: Never True 04/12/2023 Within the past 12 months,th e food you bought just didn't last and you didn't have enough money to get more: Never True 03/2023 Transportation Answer Date Recorded In the past 12 months, has l ack of transportation kept you from medical appts, meetings, work or from getting things needed for daily living? No 04/12/2023 Utilities Answer Date Recorded In the past 12 months, has t he electric, gas, oil or water company threatened to shut off services in your home? No 04/12/2023 Depression Answer Date Recorded Patient Health Questionnaire-2 Score 2 03/19/2024 Comments No Sex and Gender Information Value Date Recorded Sex Assigned at Female 01/09/2022 10:20 AM EDT Legal Sex Female 10:20 AM EDT Gender Identity Female 01/09/2022 10:20 AM EDT Sexual Orientation Choose not to disclose 2021 10:20 AM EDT documented as of this encounter Plan of Treatment Not on file documented as of this encounter Visit Diagnoses Not on filedocumented in this encounter Additional Health Concerns Assessment Noted Time PHQ-9 Depression Total Score: 15 025 9:53 AM EST documented as of this encounter Care Teams Automatic Stacker Relationship Specialty Start Date End Date Elana Prince MD [address] [place] [address] PCP - General Family Medicine 03/26/15 documented as of this encounter
--- OUTSIDE RECORDS SUMMARY | 2024-11-20 18:35 | XMS_ITS | Encounter Summary ---
Author Organization [employer] Address [address] [place] [address] 7t [place] [address] Care Team Providers Care Agile Developer Name Role Phone Elana Prince MD Primary Care Provider [phone] Reason for Referral * Neurology (Routine) - Closed Specialty Diagnoses / Procedures Referred By Contradha t Referred To Contact Diagnoses Bilateral hand numbness Procedures EMG Elana Prince MD [address] [place] [address] Phone: tel: fax: [address] Phone: tel: fax: Referral ID Status Reason Start Date Expiration Date Visits Re quested Visits Authorized [id number] Closed 08/07/2024 08/07/2025 1 1 Encounter Details Date Type Department Care Team (Late st Contact Info) Description 08/07/2024 Orders Only [facility] [address] [place], [place] [phone] Elana Prince MD [address] [place] [address] Bilateral hand numbness (Primary Dx) [...] as of this encounter Plan of Treatment Scheduled Orders [...] documented as of this encounter Care Teams Agile Developer Relationship Specialty Start Date End Date Elana Prince MD [address] [place] [address] PCP - General Family Medicine 03/26/15 documented as of this encounter
--- OUTSIDE RECORDS SUMMARY | 2024-11-20 18:35 | XMS_ITS | Encounter Summary ---
Author Organization [employer] Address [address] [facility] [address] 7t [place] [address] Care Team Providers Care Coin Machine Assembler Name Role Phone Elana Prince MD Primary Care Provider [phone] Encounter Details Date Type Department Care Team ([facility] st Contact Info) Description 11/19/2024 Telephone [facility] [address] [place], [place] [phone] Daphne Serrano [place] Social History Tobacco Use Types Packs/Day Years [...] t he electric, gas, oil or water [place] threatened to shut off services in your [...] AM EDT documented as of this encounter Miscellaneous Notes * Telephone Encounter - Daphne Serrano [place] - 11/19/2024 2:43 PM EDT Chart Prep Labs: done Images: not applicable Referrals: complete Vaccines due: Covid, Flu, and PCV20 Screenings: not applicable Overdue care gaps: PHQ-9 documented in this encounter Plan of Treatment Not on file documented as of this encounter Visit Diagnoses Not on filedocumented in this encounter Additional Health Concerns Assessment Noted Time PHQ-9 Depression Total Score: 15 025 9:53 AM EST documented as of this encounter Care Teams Coin Machine Assembler Relationship Specialty Start Date End Date Elana Prince MD [address] [place] [address] PCP - General Family Medicine 03/26/15 documented as of this encounter
--- OUTSIDE RECORDS SUMMARY | 2024-11-20 18:35 | XMS_ITS | Encounter Summary ---
Author Organization [employer] Address [address] [facility] [address] [place] [address] Care Team Providers Care Railroad Design Consultant Name Role Phone Elana Prince MD Primary Care Provider [phone] Encounter Details Date Type Department Care Team (Latest Contact Info) Description 11/20/2024 Travel Social History Tobacco Use Types Packs/Day Years [...] Q2 Not on file 07/07/2024 Comments Yes Sex and Gender Information Value Date Recorded [...] documented as of this encounter Care Teams Railroad Design Consultant Relationship Specialty Start Date End Date Elana Prince MD [address] [place] [address] PCP - General Family Medicine 03/26/15 documented as of this encounter
--- OUTSIDE RECORDS SUMMARY | 2024-11-20 18:35 | XMS_ITS | Clinical Summary ---
Author Organization [facility] Address [address] [place] [phone] Phone Care Team Providers Care Retail Event And Sales Assistant Name Role Phone Elana Prince MD Primary Care Provider Allergies No known active allergies Medications No known medications Encounters Date Type Department Care Team Description 11/18/2024 9:30 AM EDT Office Visit [facility] [address] [place] [address] Elana Prince MD Clark, Elly Rodriguez, PT Verea, Gilmer Cervical radiculopathy (Primary Dx) 11/11/2024 9:30 AM EDT Office Visit [facility] [address] [place] [address] Elana Prince MD Clark, Elly Rodriguez, PT Cervical radiculopathy (Primary Dx) from Last 3 Months Social History Tobacco Use Types Packs/Day Years [...] on file Sexual Orientation Not on file Last Filed Vital Signs Vital Sign Reading Time Taken Comments Blood Pressure 118/75 03/31/2023 4:33 PM EST Pulse 70 03/31/2023 4:33 PM EST Temperature 36.8 C (98.2 F) 03/31/2023 4:33 PM EST Respiratory Rate 16 03/31/2023 4:33 PM EST Oxygen Saturation 100% 03/31/2023 4:33 PM EST Inhaled Oxygen Concentration - - Weight 131.1 kg (289 lb) 03/31/2023 12:18 PM EST Height 175.3 cm (5' 9 ) 03/31/2023 12:18 PM EST Body Mass Index 42.68 03/31/2023 12:18 PM EST Plan of Treatment Upcoming Encounters Date Type Department Care Team (Late st Contact Info) Description 11/25/2024 9:15 AM EDT Office Visit [address] [address] Elana Prince MD [address] [place] [address] Sukhdev Luo, GEOSPATIAL SPECIALIST [address] [place] [address] Gilmer Fowler [address] [place] [address] 11/27/2024 9:15 AM EDT Office Visit [address] [address] Elana Prince MD [address] [place] [address] Sukhdev Luo, GEOSPATIAL SPECIALIST [address] [place] [address] Mone Clayton [address] [place] [address] 12/02/2024 9:30 AM EDT Office Visit [facility] [address] [place] [address] Elana Prince MD [address] [place] [address] Elly Bronson, PT [address] [place] [address] Gilmer Fowler [address] [place] [address] 12/04/2024 9:30 AM EDT Office Visit [facility] [address] [place] [address] Elana Prince MD [address] [place] [address] Elly Bronson, PT [address] [place] [address] 12/09/2024 9:30 AM EDT Office Visit [facility] [address] [place] [address] Elana Prince MD [address] [place] [address] Elly Bronson, PT [address] [place] [address] Health Maintenance Due Date Last Done Comments DEPRESSION SCREENING 2004 SMOKING Hx and SMOKELESS TOBACCO SCREENING 2005 HEPATITIS C SCREENING 2010 HIV ONE-TIME SCREENING (18-6 5 YEARS) 2010 PAP SMEAR 2013 INFLUENZA VACCINE (#1) 2024 COVID-19 VACCINE ( - 2023-2 5 season) 2024 Adult Td,Tdap Booster 04/12/2027 04/12/2017 , 09/03/2014 PNEUMOCOCCAL VACCINES (0-49 years) Aged Out 11/15/2013 No longer eligible b ased on patient's age to complete this topic HEPATITIS A VACCINES Aged Out No long er eligible based on patient's age to complete this topic HIB VACCINES Aged Out No longer eligi ble based on patient's age to complete this topic MENINGOCOCCAL VACCINES (ACWY) Aged Out No longer eligible based on patient's age to complete this topic MENINGOCOCCAL VACCINES (B) Aged Out N o longer eligible based on patient's age to complete this topic Medical Devices Not on file Procedures Procedure Name Priority Date/Time Associated Diagnosis Comments AMB REFERRAL TO [facility] PHYSICAL THERAPY Routine 11/11/2024 1:16 PM EDT Encounter for rehabilitation from Last 3 Months Results * Ambulatory referral to [facility] Physical Therapy (11/11/2024 1:16 PM EDT) Other us Elana Prince MD AMB [facility] REFERRALS Final Result from Last 3 Months Insurance [facility] [employer] [facility] [place] [address] [place] [address] [employer] [facility] [employer] [facility] [employer] [facility] [employer] A[employer] Care Teams Retail Event And Sales Assistant Relationship Specialty Start Date End Date Elana Prince MD [address] [place] [id number] PCP - General Family Medicine 07/31/24 Additional Source Comments The information contained in this document represents components of the legal health record. It is not the complete legal health record.[facility]
--- OUTSIDE RECORDS SUMMARY | 2024-11-20 18:35 | XMS_ITS | Encounter Summary ---
Author Organization [employer] Address [address] [place] [address] Care Team Providers Care Dinkey Mechanic Name Role Phone Elana Prince MD Primary Care Provider Encounter Details Date Type Department Care Team (Latest Contact Info) Description 09/03/2020 Abstract [facility] CONVERSIONS Dental, Provider, DDS Social History Tobacco Use Types Packs/Day Years Used Date Smoking Tobacco: Never Assessed Comments Unknown Sex and Gender Information Value [...] Diagnoses Not on filedocumented in this encounter Care Teams Dinkey Mechanic Relationship Specialty Start Date End Date Elana Prince MD [address] [place] [address] PCP - General Family Medicine 03/26/15 documented as of this encounter
--- OUTSIDE RECORDS SUMMARY | 2024-11-20 18:35 | XMS_ITS | Encounter Summary ---
Author Organization [employer] Address [address] [place] [address] Care Team Providers Care Trade Clerk Name Role Phone Elana Prince MD Primary Care Provider [phone] Reason for Visit * Reason Onset Date Comments Med Refill 06/30/2024 Encounter Details Date Type Department Care Team ([facility] st Contact Info) Description 06/30/2024 Refill [facility] MEDICINE [address] [place], [place] [phone] Elana Prince MD [address] [place], [place] [phone] Social History Tobacco Use Types Packs/Day Years [...] documented as of this encounter Care Teams Trade Clerk Relationship Specialty Start Date End Date Elana Prince MD [address] [place] [id number] PCP - General Family Medicine 03/26/15 documented as of this encounter
--- OUTSIDE RECORDS SUMMARY | 2024-11-20 18:35 | XMS_ITS | Encounter Summary ---
Author Organization [employer] Address [address] [place] [address] Care Team Providers Care Lowerator Operator Name Role Phone Elana Prince MD Primary Care Provider [phone] Reason for Visit * Reason Onset Date Comments Referral 08/13/2024 Encounter Details Date Type Department Care Team ([facility] st Contact Info) Description 08/13/2024 Telephone [facility] MEDICINE [address] [place] [address] Elana Prince MD [address] [place], [place] [phone] Referral Social History Tobacco Use Types Packs/Day Years [...] encounter Miscellaneous Notes * Telephone Encounter - Karolyn Breen RN - 08/13/2024 2:47 PM EDT Telephone call placed to pt regarding below messages. Pt reports that message below is not correct.States that at last appt with PCP 07/07/24 they discussed how pt missed pelvic US d/t heavy menses. She states that during appt, PCP said she was going to put in new order for pt to do the US since ithas been a long time since it was ordered but that PCP never did. States when she called to schedule, they said she needs new order. Pt denied needing OBGYN referral or an appt, just wants order for US to be reordered. Informed I would send request to PCP * Telephone Encounter - Liliya Denson RN - 08/13/2024 12:26 PM EDT Triage call with [facility] charge operator ID [id number] Pt reports has been having pelvic pain, periods are very heavy with clotting and very irregular. Last period was 07/01 - 07/05, no period in July. Pt is not using control. Pt has had a referral made for radiology pelvic complete and transvaginal in June of 2023 but, Pt never went to the apt. Ptis calling now to have this radiology scheduled again and to obtain a referral to [facility] [place] [facility] Ptis advised will forward this request to PCP and nursing team to follow up prn. Pt agrees with this disposition and plan. Insurance is verified as active. Protocol Used: Information Only Call - No Triage (Adult) Protocol-Based Disposition: Discuss with PCP and Callback by Nurse Today Video visit not offered Positive Triage Question: * Requesting referral to a specialist * All higher-acuity triage questions were negative Care Advice Discussed: * Reasons To Call Back - New symptoms develop - You have more questions - You become worse * Telephone Encounter - Roseline Montana - 08/13/2024 10:28 AM EDT Tc from pt requesting new referral for HOUSING SPECIALIST and us pelvis transvaginal due pelvic pain. documented in this encounter Plan of Treatment Not on file documented as of this encounter Visit Diagnoses Not on filedocumented in this encounter Additional Health Concerns Assessment Noted Time PHQ-9 Depression Total Score: 15 025 9:53 AM EST documented as of this encounter Care Teams Lowerator Operator Relationship Specialty Start Date End Date Elana Prince MD [address] [place] [address] PCP - General Family Medicine 03/26/15 documented as of this encounter
--- OUTSIDE RECORDS SUMMARY | 2024-11-20 18:35 | XMS_ITS | Encounter Summary ---
Author Organization [email or web address] Address [address] [facility] [address] [place] [address] Care Team Providers Care Car Conditioner Name Role Phone Elana Prince MD Primary Care Provider [phone] Encounter Details Date Type Department Care Team ([facility] st Contact Info) Description 07/23/2024 Orders Only [facility] MEDICINE [address] [place], [place] [phone] Elana Prince MD [address] [place], [place] [phone] Social History Tobacco Use Types Packs/Day Years [...] documented as of this encounter Care Teams Car Conditioner Relationship Specialty Start Date End Date Elana Prince MD [address] [place] [address] PCP - General Family Medicine 03/26/15 documented as of this encounter
--- OUTSIDE RECORDS SUMMARY | 2024-11-20 18:35 | XMS_ITS | Encounter Summary ---
Author Organization [employer] Address [address] [place] [address] Care Team Providers Care Changeover Operator Name Role Phone Elana Prince MD Primary Care Provider [phone] Reason for Visit * Reason Onset Date Comments Med Refill 06/30/2024 Encounter Details Date Type Department Care Team ([facility] st Contact Info) Description 06/30/2024 Refill [facility] MEDICINE [address] [place], [place] [phone] Sylvie Keen CNM [address] [place] [address] Social History Tobacco Use Types Packs/Day Years [...] documented as of this encounter Care Teams Changeover Operator Relationship Specialty Start Date End Date Elana Prince MD [address] [place] [address] PCP - General Family Medicine 03/26/15 documented as of this encounter
--- OUTSIDE RECORDS SUMMARY | 2024-11-20 18:35 | XMS_ITS | Encounter Summary ---
Author Organization [employer] Address [address] [place] [address] Care Team Providers Care Can Dragger Name Role Phone Elana Prince MD Primary Care Provider [phone] Reason for Visit * Reason Comments Med Refill Encounter Details Date Type Department Care Team ([facility] st Contact Info) Description 10/26/2024 Refill [facility] MEDICINE [address] [place], [place] [phone] Elana Prince MD [address] [place], [place] [phone] Social History Tobacco Use Types Packs/Day Years [...] encounter Miscellaneous Notes * Telephone Encounter - Elana Prince MD - 10/27/2024 11:37 AM EDT Increased dose documented in this encounter Plan of Treatment Not on file documented as of this encounter Visit Diagnoses Not on filedocumented in this encounter Additional Health Concerns Assessment Noted Time PHQ-9 Depression Total Score: 15 025 9:53 AM EST documented as of this encounter Care Teams Can Dragger Relationship Specialty Start Date End Date Elana Prince MD [address] [place] [address] PCP - General Family Medicine 03/26/15 documented as of this encounter
--- OUTSIDE RECORDS SUMMARY | 2024-11-20 18:35 | XMS_ITS | Clinical Summary ---
Author Organization [employer] Address [address] [place] [address] Care Team Providers Care Product Info Specialist Name Role Phone Elana Prince MD Primary Care Provider [phone] Allergies No known active allergies Medications * This document contains information received from the source organization and may not represent a complete record from that organization. topiramate 50 MG tablet Take 1 tablet (50 mg) by mouth at bedtime. 90 tablet 3 5 Active Fluticasone-Kojo meterol (Advair Diskus) 500-50 MCG/ACT aerosol powder Inhale 1 puff 2 times daily. 60 each 11 5 Active albuterol 108 (90 Base) MCG/ACT inhaler Inhale 2 puffs every 4 (four) hours if needed for wheezing or shortness of breath. Maximum 8 puffs per day 18 g 3 5 03/25/19 26 Active albuterol (2.5 MG/3ML) 0.083% nebulizer solution Take 3 mL (2.5 mg) by nebulization every 6 (six) hours if needed for wheezing or shortness of breath. 75 mL 1 5 Active cyclobenzaprine (Flexeril) 10 MG tablet Take 1 tablet by mouth at bedtime as needed for muscle spasm 30 tablet 11 5 Active escitalopram (Lexapro) 10 MG tablet Take 1 tablet (10 mg) by mouth Once per day. 90 tablet 3 5 Active phentermine 15 MG capsule Take 1 capsule (15 mg) by mouth before breakfast. 30 capsule 2 5 Active phentermine 30 MG capsule Take 1 capsule (30 mg) by mouth before breakfast. 30 capsule 5 11/27/19 25 Active Vit-Fe Fumarate-FA ( Plus) 27-1 MG tablet One tablet by mouth daily 30 tablet 5 Active Active Problems Problem Noted Date Diagnosed Date Anxiety and depression 07/13/2024 Assessment & Plan (07/13/2024 11:11 AM EDT): - PHQ9 score 15 and GAD7 score 18 in Mar 2024 - likely MDD and / or depression and anxiety - single mother of 4 children - limited support network; her mother is supportive - patient did not want to wait for integrated behavioral health service clinician today, and is ambivalent about counseling - will start escitalopram - encouraged to try exercising, such as swimming as it was her favorite activity before moving from [place]. Chronic pain of both shoulders 07/07/2024 Assessment & Plan (07/13/2024 11:08 AM EDT): - Likely muscle spasm or strain - Referral to PT - Prescribed muscle relaxant 07/07/24 Neck pain 07/07/2024 Assessment & Plan (07/13/2024 11:08 AM EDT): - Likely muscle spasm or strain - Referral to PT - Prescribed muscle relaxant 07/07/24 Bilateral hand numbness 07/07/2024 Assessment & Plan (07/07/2024 11:50 AM EDT): - Will evaluate with NCT/EMG for possible carpule tunnel 07/07/2024 Headache 06/17/2023 Assessment & Plan (07/13/2024 11:07 AM EDT): - likely migraine and/or tension - continue topiramate Assessment & Plan (03/28/2024 4:09 PM EST): - likely migraine and/or tension - restart topiramate Assessment & Plan (06/17/2023 6:50 AM EDT): - likely migraine and/or tension - restart topiramate Pelvic pain 06/17/2023 Overview (06/17/2023): - evaluate with US Assessment & Plan (06/17/2023 6:56 AM EDT): - recently seen by [facility] ED, and treated for presumptive PID - no improvement in symptom and patient has not been sexually active - recheck STI screening - evaluate with US Dental caries 11/17/2022 Dental calculus 11/17/2022 Asthma 04/12/2015 Assessment & Plan (07/13/2024 11:05 AM EDT): - continue fluticasone propionate / salmeterol (Advair or Wixela) to 500/50 - continue albuterol HFA and neb prn - consider allergy testing and/or optimize Tx for allergic rhinitis Assessment & Plan (03/28/2024 4:09 PM EST): - increase fluticasone propionate / salmeterol (Advair or Wixela) to 500/50 - continue albuterol HFA and neb prn - consider allergy testing and/or optimize Tx for allergic rhinitis Assessment & Plan (06/17/2023 6:46 AM EDT): - continue fluticasone propionate / salmeterol (Advair or Wixela) - continue albuterol HFA and neb prn - consider allergy testing and/or optimize Tx for allergic rhinitis Allergic rhinitis 11/01/2012 Assessment & Plan (03/19/2024 12:45 PM EST): - she dislikes antihistamine or fluticasone nasal - consider allergy testing and possible immunotherapy Assessment & Plan (06/17/2023 6:47 AM EDT): - she dislikes antihistamine or fluticasone nasal - consider allergy testing and possible immunotherapy Mood disorder 11/01/2012 Assessment & Plan (07/13/2024 11:10 AM EDT): - PHQ9 score 15 and GAD7 score 18 in Mar 2024 - likely MDD and / or depression and anxiety - single mother of 4 children - limited support network; her mother is supportive - patient did not want to wait for integrated behavioral health service clinician today, and is ambivalent about counseling - will start escitalopram - encouraged to try exercising, such as swimming as it was her favorite activity before moving [place]. Assessment & Plan (03/28/2024 4:12 PM EST): - PHQ9 score 15 and GAD7 score 18 - likely MDD and / or depression and anxiety - single mother of 4 children - limited support network (mother who is also depressed after her ) - patient did not want to wait for integrated behavioral health service clinician today - encouraged to try exercising, such as swimming as it was her favorite activity before moving from [place]. Assessment & Plan (06/17/2023 6:49 AM EDT): - likely MDD and / or depression and anxiety - single mother of 4 children - limited support network (mother who is also depressed after her ) - patient did not want to wait for integrated behavioral health service clinician today - encouraged to try exercising, such as swimming as it was her favorite activity before moving from [place]. Obesity 11/01/2012 Assessment & Plan (07/13/2024 11:13 AM EDT): - encouraged exercise for both depression and overall health and well-being - discussed about [facility] Wt management program with Dr. Araya - she has tried topiamate and semaglutide; relative contraindication for phentermine due to behavioral health problem - change semaglutide to tirzepatide - Continue working on lifestyle modifications. - Generic advice as below. Tailor for your unique body, character, and specific condition. Dietary Recommendations: Fruits, vegetables, whole grains, protein foods, and fat-free or low-fat dairy products are healthy choices. Eat different types of protein foods in your diet. This can include seafood, lean meats, poultry, beans, peas, lentils, nuts, seeds, soy products, and eggs. Limit foods and beverages higher in added sugars, saturated fat, and sodium. Exercise Recommendations: At least 150 minutes of moderate-intensity physical activity per week, or an equivalent combination of moderate- and vigorous-intensity activity Assessment & Plan (03/28/2024 4:11 PM EST): - encouraged exercise for both depression and overall health and well-being - discussed about [facility] Wt management program with Dr. Araya - she has tried topiamate and semaglutide - change semaglutide to tirzepatide Assessment & Plan (06/17/2023 6:52 AM EDT): - encouraged exercise for both depression and overall health and well-being - recommended to check [facility] Wt management program with Dr. Araya - will try semaglutide Comments Yes Encounters Date Type Department Care Team Description 11/20/2024 1:00 PM EDT Office Visit [facility] [place] [address] Matt Lomeli CNM , unspecified gestational age (Primary Dx) 11/20/2024 Travel 11/19/2024 Telephone [facility] [place] [address] Daphne Serrano [place] 11/13/2024 Travel 10/27/2024 Orders Only [facility] [place] [address] Elana Prince MD 10/26/2024 Refill [facility] [address] [place] [address] Elana Prince MD 10/22/2024 Telephone [facility] [place] [address] Matt Lomeli CNM December recall 10/14/2024 Telephone [facility] [address] [place] [address] Elana Prince MD 10/06/2024 Telephone [facility] [place] [address] Elana Prince MD 10/03/2024 Telephone [facility] [address] [place] [address] Elana Prince MD Chart Prep from Last 3 Months Immunizations Immunization Administration Dates Next Due DTaP 01/29/2007, 7,06/28/1994,02/09,1992,1992 HPV, Quadrivalent 03/26/2009,01/29/2007,04/01/19 07 Hep A, Adult 07/09/2017 Hep A, ped/adol, 2 dose 05/05/2009 Hep B, Adolescent or Pediatric 07/24/1996,1996,04/21/1996 Hib (HbOC) 12/01/1993, 3,1992,09/14 IPV 06/24/1996, 4,1992,09/14 Influenza injectable quadriv alent IIV4 with preservative 04/12/2017 Influenza, IIV3, injectable 11/24/2010 Influenza, Split (incl. francisca fied surface antigen) 01/06/2013 MMR 06/24/1996,12/01/1993 Meningococcal MCV4P ACYW-135 11/24/2010 Pneumococcal Polysaccharide PPSV23 11/15/2013 Tdap 04/12/2017,09/03/2014 Varicella 11/24/2010,05/05/2009 Family History Medical History Relation Name Comments Leukemia Father Depression Maternal Grandmother Diabetes type II Maternal Grandmother Hypertension Maternal Grandmother Relation Name Status Comments Father Maternal Grandmother Social History Tobacco Use Types Packs/Day Years [...] not to disclose 2021 10:20 AM EDT Last Filed Vital Signs Vital Sign Reading Time Taken Comments Blood Pressure 110/70 11/20/2024 1:03 PM EDT Pulse 88 11/20/2024 1:03 PM EDT Temperature 37.1 C (98.7 F) 11/20/2024 1:03 PM EDT Respiratory Rate 16 11/20/2024 1:03 PM EDT Oxygen Saturation 98% 11/20/2024 1:03 PM EDT Inhaled Oxygen Concentration - - Weight 138 kg (304 lb 6.4 oz) 11/20/2024 1:03 PM EDT Height 172.7 cm (5' 8 ) 07/07/2024 11:21 AM EDT Body Mass Index 46.28 07/07/2024 11:21 AM EDT Plan of Treatment Health Maintenance Due Date Last Done Comments Pneumococcal Vaccine: Pediatrics (0 to 5 Years) and At-Risk Patients (6 to 49) Years (2 of 2 - PCV) 11/15/2014 11/15/2013 Dental Prophylaxis 05/19/2023 11/17/2022, 0 11/23/2021, 09/03/2020 Dental Oral Exam 01/21/2024 07/20/2023, , 05/16/2016 Dental X-Ray: Bitewings 07/20/2024 07/20/19 24, 11/17/2022, 11/23/2021, Additional history exists Depression Monitoring 09/16/2024 03/19/2024, 025 COVID-19 Vaccine ( season) 2024 04/05/2021, 02/17/2021 Influenza Vaccine (#1) 2024 8, 01/06/2013, 11/24/2010 Dental X-Ray: Full Mouth 11/24/2024 022, 06/09/2016, 05/16/2016 Alcohol/Substance Use Screening 03/19/2025 03/19/2024 SDOH Screening 07/07/2025 07/07/2024 Disability Screening 11/13/2025 11/13/2024 Family Planning (PISQ) 11/20/2025 11/20/2024 Tobacco Screening 11/20/2025 11/20/2024 DTaP/Tdap/Td Vaccines (9 - Td or Tdap) 04/12/2027 04/12/2017, 09/03/2014, 01/29/2007, Additional history exists Cervical Cancer Screening 12/18/2028 HPV/Cotest 12/18/2028 12/19/2023 Pap Smear 12/18/2028 12/19/2023, 06/18/2020 Lipid Panel 03/19/2029 03/19/2024 Zoster Vaccines (1 of 2) 2042 RSV Patients and Patients Aged 60 years or older (1 - 1-dose 75+ series) 06/17/2067 HIB Vaccines Completed 12/01/1993, 03/1992, 1992, Additional history exists IPV Vaccines Completed 06/24/1996, 11/11, 1992, Additional history exists Hepatitis B Vaccines Discontinued 07/24/1996, 05/21/1996, 04/21/1996 HPV Vaccines Completed 03/26/2009, 01/11, 04/01/2006 Meningococcal Vaccine Completed 11/24/2010 Hepatitis A Vaccines Completed 07/09/2017, 05/05/19 10 HIV Screening Completed 06/18/2020 Hepatitis C Screening Completed 06/18/2020 Meningococcal B Vaccine Aged Out No l onger eligible based on patient's age to complete this topic RSV under 20 months Aged Out No longe r eligible based on patient's age to complete this topic Rotavirus Vaccines Aged Out No longer eligible based on patient's age to complete this topic Procedures Procedure Name Priority Date/Time Associated Diagnosis Comments US OB LIMITED 1+ FETUSES STAT 11/20/2024 6:23 PM EDT POCT , URINE Routine 11/20/2024 1:55 PM EDT , unspecified gestational age LIPID PANEL WITH REFLEX TO DIRECT LDL Routine 03/19/2024 10:42 AM EST Class 3 severe obesity due to excess calories with serious comorbidity and body mass index (BMI) of 40.0 to 44.9 in adult ([facility]) THINPREP IMAGING PAP AND HPV MRNA E6/E7 Routine 12/19/2023 10:44 AM EDT BITEWINGS - 4 RADIOGRAPHIC IMAGES Routine 07/20/2023 10:30 AM EDT PERIODIC ORAL EVALUATION - ESTABLISHED PATIENT Routine 07/20/2023 10:30 AM EDT PROPHYLAXIS - ADULT Routine 11/17/2022 1 1:00 AM EDT INTRAORAL - COMPLETE SERIES OF RADIOGRAPHIC IMAGES Routine 11/23/2021 12:00 AM EDT ZZZ HISTORICAL HEPATITIS C ANTIBODY Routine 06/18/2020 3:55 PM EDT from Last 3 Months or Most Recently Relevant to Health Maintenance Results * US OB Limited 1+ Fetuses (11/20/2024 6:23 PM EDT) Anatomical Region Laterality Modality Body Ultrasound 11/20/2024 6:23 PM EDT Narrative 11/20/2024 6:24 PM EDT [address] [address] Ultrasound Report Signed Patient: Janice Joseph MR#: [id number] : 1990 Acct:[id number] Age/Sex: 34 / F ADM Date: 11/20/24 Loc: HO.US Attending Dr: Matt Lomeli CNM Ordering Physician: MATT LOMELI CNM Date of Service: 11/20/24 Procedure(s): US OB limited Accession Number(s): [id number] cc: MATT LOMELI CNM Reason for Exam: unknown gestational [...] in OV> 11/20/241823 DD/ 22 TD/TT: 11/20/241822 Accounts Payable Payroll Coordinator: Procedure Note Donotuseinterpreter, Image - 11/20/2024 [place] [address] Ultrasound Report Signed Patient: Janice Joseph#: [id number] : 1990Acct:[id number] Age/Sex: 34 / FADM Date: 11/20/24 Loc: HO.US Attending Dr: Matt Lomeli CNM Ordering Physician: MATT LOMELI CNM Date of Service: 11/20/24 Procedure(s): US OB limited Accession Number(s): [id number] cc: MATT LOMELI CNM Reason for Exam: unknown gestational [...] in OV> 11/20/241823 DD/ 22 TD/TT: 11/20/241822 Accounts Payable Payroll Coordinator: Matt Lomeli CNM IMG OB US PROCEDURES Felipa l Result * (ABNORMAL) POCT , urine manually resulted (11/20/2024 1:55 PM EDT) Preg Test, Ur Positive (A) Negative, Indeterminate, None Detected, Invalid, Specimen unsatisfactory for evaluation, Weakly Positive, 2+ QC Media Lot # [id number] Lot# Expiration Date 10312,0 26 Urine 11/20/2024 1:55 PM EDT Matt Lomeli CNM POINT OF CARE TEST ENTER/ EDIT ORDERABLES Final Result * Lipid Panel with Reflex to Direct LDL (03/19/2024 10:42 AM EST) Triglycerides 75 <150 mg/dL [facility] Comment:Desirable Triglyceri de: less than 150 mg/dLBorderline High Triglyceride 150-199 mg/dLHigh Triglyceride: 200-499 mg/dLVery High Triglyceride: greater than or equal to 5OO mg/dL Cholesterol 137 <200 mg/dL [facility] Comment:Desirable Cholestero l: less than 200 mg/dLBorderline High Cholesterol: 200-239 mg/dLHigh Cholesterol: greater than 239 mg/dL LDL Cholesterol Calculated 80 <100 mg/dL [facility] Comment:Desirable LDL: less than 100 mg/dLNear Optimal/Above Optimal LDL: 110- 129 mg/dLBorderline High LDL: 130-159 mg/dLHigh LDL: 160-189 mg/dLVery High LDL: greater than or equal to 190 mg/dL HDL Cholesterol 42 >40 mg/dL [facility] Comment:Desirable HDL: great er than 40 mg/dL Note: This HDL assay may give artificially low results in patients with liver disease. Blood 03/19/2024 10:4 2 AM EST 03/19/2024 11:07 AM EST us Elana Prince MD LAB BLOOD ORDERABLES Final Resul t [facility] [address] [place] [phone] * ThinPrep Imaging Pap and HPV mRNA E6/E7 (12/19/2023 10:44 AM EDT) HPV nRNA E6/E7 Not Detected Not Detected [facility] Comment:Methodology: Transcr iption-Mediated AmplificationThis assay detects E6/E7 viral messenger RNA (mRNA) from 14high-risk HPV types (16,18,31,33,35,39,45,51,52,56,58,59,66,68).Cervical sources are required for HPV testing.If a vaginal source from a patient who has had atotal hysterectomy with removal of cervix wassubmitted, please contact the testing laboratoryfor alternative testing options.For additional information, please refer [email or web address]/faq/LSW680r9(This link if provided for information/educational purposes only.)THIS TEST WAS PERFORMED AT:[facility] [place] [phone] WHITEHEAD MD SOURCE: SEE NOTE [facility] Comment:Cervix Report Status: TNP [facility] Clinical Information: SEE NOTE [facility] Comment:None given LMP: SEE NOTE [facility] Comment:NONE GIVEN Prev. PAP: SEE NOTE [facility] Comment:NONE GIVEN Prev. BX: SEE NOTE [facility] Comment:NONE GIVEN Statement Of Adequacy: SEE NOTE [facility] Comment:Satisfactory for gurpreet luation.Endocervical/transformation zone componentpresent. General Categorization: [facility] Interpretation/Result: SEE NOTE [facility] Comment:Cytology Results: Ne gative for intraepitheliallesion or malignancy. Cytology Comment SEE NOTE [facility] Comment:This Pap test has be en evaluated with computerassisted technology. Clinical Education Academic Coordinator: SEE NOTE [facility] Comment:DMM, CT(ASCP)CT scre ening location: [place] [address] Review Clinical Education Academic Coordinator: [facility] Pathologist [facility] PAP Infection SEE NOTE [facility] Comment:Shift in vaginal sandeep ra suggestive of bacterialvaginosis. See Note SEE NOTE [facility] Comment:EXPLANATORY NOTE:The Pap is a screening test for cervical cancer. It isnot a diagnostic test and is subject to false negativeand false positive results. It is most reliable when asatisfactory sample, regularly obtained, is submittedwith relevant clinical findings and history, and whenthe Pap result is evaluated along with historic andcurrent clinical information. 12/19/2023 10:4 4 AM EDT 12/19/2023 4:47 PM EDT Narrative [facility] - 12/25/2023 2:37 PM EDT SEE SCANNED RESULTS IN EMRCERVIX us Matt Lomeli CNM LAB PATHOLOGY ORDERABLES Final Result [facility] [address] [place] [address] [phone] * Hepatitis C Antibody (06/18/2020 3:55 PM EDT) Pathologist [facility] Hepatitis C Antibody Nonreactive Nonreactive [facility] Comment: Antibodies to HCV not detected; does not exclude early acute HCV infection. HIV AB/AG Nonreactive Nonreactive [facility] Comment: HIV-1 p24 Ag and/or HIV-1/HIV-2 Ab not detected. A test result that is nonreactive does not exclude the possibility of exposure to or infection with HIV-1 and/or HIV-2. Nonreactive results in this assay for individuals with prior exposure to HIV-1 and/or HIV-2 may be due to antigen and antibody levels that are below the limit of detection of this assay. [employer] HIV Ag/Ab Combo assay result and supplemental assay results should be interpreted in conjunction with the patient's clinical presentation, history and other laboratory results. If the results are inconsistent with clinical evidence, additional testing is suggested to confirm the result. Hepatitis B Surface Antigen Negative Negative [facility] 06/18/2020 3:55 PM EDT Nahomi Cyr HISTORICAL/NON ORDERABLE LABS Fi nal Result [facility] [address] from Last 3 Months or Most Recently Relevant to Health Maintenance Insurance [facility] C3 DENTAL-[facility] MEDICAID STAND ADULT Care Teams Product Info Specialist Relationship Specialty Start Date End Date Elana Prince MD [address] [place] [phone] PCP - General Family Medicine 03/26/15
--- OUTSIDE RECORDS SUMMARY | 2024-11-20 18:35 | XMS_ITS | Encounter Summary ---
Author Organization [employer] Address [address] [place] [address] Care Team Providers Care Superintendent Terminal Name Role Phone Elana Prince MD Primary Care Provider [phone] Encounter Details Date Type Department Care Team ([facility] st Contact Info) Description 10/27/2024 Orders Only [facility] [address] [place], [place] [phone] Elana Prince MD [address] [place], [place] [phone] Social History Tobacco Use Types Packs/Day Years [...] is your housing situation today? I have shaoib cardozo 07/07/[address] you [...] documented as of this encounter Care Teams Superintendent Terminal Relationship Specialty Start Date End Date Elana Prince MD [address] [place] [address] PCP - General Family Medicine 03/26/15 documented as of this encounter
--- OUTSIDE RECORDS SUMMARY | 2024-11-20 18:35 | XMS_ITS | Encounter Summary ---
Author Organization [employer] Address [address] [place] [address] Care Team Providers Care Flange Machine Operator Name Role Phone Elana Prince MD Primary Care Provider [phone] Encounter Details Date Type Department Care Team ([facility] st Contact Info) Description 12/11/2022 Abstract [facility] [address] [place], [place] [phone] Elana Prince MD [address] [place], [place] [phone] Social History Tobacco Use Types Packs/Day Years Used Date Smoking Tobacco: Never Smokeless Tobacco: Never Alcohol Use Standard Drinks/Week Comments Not Currently 0 (1 standard drink = 0.6 oz pur e alcohol) Comments Unknown Sex and Gender Information Value Date Recorded Sex Assigned at Female 01/09/2022 10:20 AM EDT Legal Sex Female 10:20 AM EDT Gender Identity Female 01/09/2022 10:20 AM EDT Sexual Orientation Choose not to disclose 2021 10:20 AM EDT documented as of this encounter Plan of Treatment Not on file documented as of this encounter Procedures Procedure Name Priority Date/Time Associated Diagnosis Comments PAP/HPV Routine 06/18/2020 documented in this encounter Results * Pap Smear (06/18/2020) Pap Negative for intraephithelial lesion or malignancy Negative for intraephithelial lesion or malignancy, Other Historical Provider HEALTH MAINTENANCE Final Result documented in this encounter Visit Diagnoses Not on filedocumented in this encounter Care Teams Flange Machine Operator Relationship Specialty Start Date End Date Elana Prince MD [address] [place] [phone] PCP - General Family Medicine 03/26/15 documented as of this encounter
--- OUTSIDE RECORDS SUMMARY | 2024-11-20 18:35 | XMS_ITS | Encounter Summary ---
Author Organization [employer] Address [address] [place] [address] Care Team Providers Care Pancake Professional Name Role Phone Elana Prince MD Primary Care Provider [phone] Encounter Details Date Type Department Care Team (Latest Contact Info) Description 11/23/2021 Abstract [facility] CONVERSIONS Dental, Provider, DDS Social History Tobacco [...] on filedocumented in this encounter Care Teams Pancake Professional Relationship Specialty Start Date End Date Elana Prince MD [address] [place] [phone] PCP - General Family Medicine 03/26/15 documented as of this encounter
--- OUTSIDE RECORDS SUMMARY | 2024-11-20 18:35 | XMS_ITS | Encounter Summary ---
Author Organization [employer] Address [address] [facility] [address] 7t [place] [address] Care Team Providers Care Prosthetic Assistant Name Role Phone Elana Prince MD Primary Care Provider [phone] Encounter Details Date Type Department Care Team ([facility] st Contact Info) Description 03/14/2024 Orders Only [facility] MEDICINE 230 [place], [place] [phone] Elana Prince MD 230 [place], [place] [phone] Social History Tobacco Use Types Packs/Day Years Used Date Smoking Tobacco: Never Smokeless Tobacco: Never Alcohol Use Standard Drinks/Week Comments Not Currently 0 (1 standard drink = 0.6 oz pur e alcohol) Depression Answer Date Recorded Patient Health Questionnaire-9 Score 13 06/14/2023 Patient Health Questionnaire-9 Score 13 06/14/2023 Last PHQ-9: Questionnaire Data Not on file 0 06/14/2023 Housing Stability Answer Date Recorded What is [...] Answer Date Recorded Patient Health Questionnaire-2 Score 3 06/14/2023 Comments No Sex and Gender Information Value [...] Assessment Noted Time PHQ-9 Depression Total Score: 13 024 10:52 AM EDT documented as of this encounter Care Teams Prosthetic Assistant Relationship Specialty Start Date End Date Elana Prince MD [address] [place] [address] PCP - General Family Medicine 03/26/15 documented as of this encounter
== END 2024-11-20 15:18 | disposition home or self-care (01) ==
LOC: HO.US 15:17
PROVIDERS: Visit Provider Advanced Practice Midwife
DX: Z34.92 Encounter for supervision of normal pregnancy, unspecified, second trimester (principal); Z3A.20 20 weeks gestation of pregnancy
CPT/HCPCS: 76815

== ENCOUNTER → 2024-11-20 15:22 | Outpatient (BNV) | payer MEDICAID, SELFPAY | PROVIDERS: Visit Provider Radiology Diagnostic Radiology | DX: Z3A.20 20 weeks gestation of pregnancy (principal) | CPT/HCPCS: 76815 ==

== ENCOUNTER 2024-11-21 09:15 | Outpatient (REF) | payer MEDICAID, SELFPAY ==
--- OUTSIDE RECORDS SUMMARY | 2024-11-18 09:30 | XMS_ITS | Encounter Summary ---
Author Organization [facility] Address [address] [facility] [address] [place] [address] Phone Care Team Providers Care Sr Vice President Name Role Phone Elana Prince MD Primary Care Provider [phone] Reason for Visit * Physical Therapy (Routine) - Authorized Specialty Diagnoses / Procedures Referred By Contac t Referred To Contact Physical Therapy Diagnoses Encounter for rehabilitation Elana Prince MD Phone: tel: fax: [facility] [address] [place] [address] Phone: tel: Referral ID Status Reason Start Date Expiration Date V isits Requested Visits Authorized [id number] Authorized 07/14/2024 07/14/2025 20 20 Encounter Details Date Type Department Care Team (Late st Contact Info) Description 11/18/2024 9:30 AM EDT Office Visit [facility] [address] [place] [address] Elana Prince MD [address] [place] [address] Elly Bronson, PT [address] [place], [place] [phone] Gilmer Fowler [address] [place] [address] Cervical radiculopathy (Primary Dx) Social History Tobacco [...] Physical Therapy. Referring MD: Elana Prince MD [address] [place] [address] Cervical radiculopathy [M54.12] Precautions/Safety: Asthma (has inhaler [...] MODALITIES N/a Home Exercise Program: Access Code: [email or web address] URL: [email or web address] Date: 11/18/2024 Prepared by: Elly Bronson Exercises [...] mobility, review DNF endurance Elly Bronson, [place] [id number] documented in this encounter Plan of Treatment Upcoming Encounters Date Type Department Care Team (Late st Contact Info) Description 11/25/2024 9:15 AM EDT Office Visit [facility] [address] [place] [address] [place] [address] Elana Prince MD [address] [place] [address] Sukhdev Luo, [address] [address] [email or web address] Gilmer Fowler [address] [place] [address] 11/27/2024 9:15 AM EDT Office Visit [facility] [address] [place] [address] Elana Prince MD [address] [place] [address] Sukhdev Luo, ROD STRAIGHTENER 8 [place] [address] Mone Clayton [address] [place] [address] 12/02/2024 9:30 AM EDT Office Visit [facility] [address] [place] [address] Elana Prince MD [address] [place] [address] Elly Bronson, PT 8 [place] [address] Gilmer Fowler [address] [place] [address] [email or web address] 12/04/2024 9:30 AM EDT Office Visit [facility] [address] [place] [address] Elana Prince MD [address] [place] [address] Elly Bronson, PT 8 [place] [address] 12/09/2024 9:30 AM EDT Office Visit [facility] [address] [place] [address] Elana Prince MD [address] [place] [address] Elly Bronson, PT 8 [place] [address] [email or web address] documented as of this encounter Visit Diagnoses Diagnosis Cervical radiculopathy- Primary Brachial neuritis or radiculitis nos documented in this encounter Care Teams Sr Vice President Relationship Specialty Start Date End Date Elana Prince MD [address] [place] [address] PCP - General Family Medicine 07/31/24 documented as of this encounter Additional Source Comments The information contained in this document represents components of the legal health record. It is not the complete legal health record.[facility]
--- OUTSIDE RECORDS SUMMARY | 2024-11-20 13:00 | XMS_ITS | Encounter Summary ---
Author Organization [employer] Address [address] [facility] 7t [place] [address] Care Team Providers Care Data Technical Lead Name Role Phone Elana Prince MD Primary Care Provider Reason for Referral * Imaging (Routine) - Authorized Specialty Diagnoses / Procedures Referred By Contradha t Referred To Contact Radiology Diagnoses , unspecified gestational age Procedures US OB Limited 1+ Fetuses Sylvie Lomeli CNM [address] [place] [address] Phone: tel: fax: Referral ID Status Reason Start Date Expiration Date V isits Requested Visits Authorized [id number] Authorized 11/20/2024 11/20/2025 1 1 Reason for Visit * Reason Comments CHW - Office Visit Encounter Details Date Type Department Care Team (Late st Contact Info) Description 11/20/2024 1:00 PM EDT Office Visit [facility] [address] [place], [place] [phone] Sylvie Lomeli CNM [address] [place], [place] [phone] , unspecified gestational age (Primary Dx) Social [...] a 34 y.o. 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 Negative home test 08/2024, positive home test10/16/2024. She was in [place] at the time and unable to be [...] If continuing , would like care at [facility]. Accepts MVI for now. Rx sent in. [...] PM EDT Narrative 11/20/2024 6:24 PM EDT [address] [address] Ultrasound Report Signed Patient: Janice Joseph MR#: [id number] : 1990 Acct:[id number] Age/Sex: 34 / F ADM Date: 11/20/24 Loc: HO.US Attending Dr: Sylvie Lomeli CNM Ordering Physician: SYLVIE LOMELI CNM Date of Service: 11/20/24 Procedure(s): US OB limited Accession Number(s): [id number] cc: SYLVIE LOMELI CNM Reason for Exam: [...] in OV> 11/20/241823 DD/ 22 TD/TT: 11/20/241822 Senior Finance Manager: Procedure Note Donotuseinterpreter, Image - 11/20/2024 [place] [address] Ultrasound Report Signed Patient: Janice Joseph#: M [id number] : 1990Acct:[id number] Age/Sex: 34 / FADM Date: 11/20/24 Loc: Attending Dr: Sylvie Lomeli CNM Ordering Physician: SYLVIE LOMELI CNM Date of Service: 11/20/24 Procedure(s): US OB limited Accession Number(s): [id number] cc: SYLVIE LOMELI CNM Reason for Exam: [...] in OV> 11/20/241823 DD/ 22 TD/TT: 11/20/241822 Senior Finance Manager: Sylvie Lomeli CNM IMG OB US PROCEDURES [...] documented as of this encounter Care Teams Data Technical Lead Relationship Specialty Start Date End Date Elana Prince MD [address] [place] [address] PCP - General Family Medicine 03/26/15 documented as of this encounter
--- OUTSIDE RECORDS SUMMARY | 2024-11-21 10:12 | XMS_ITS | Encounter Summary ---
Author Organization [employer] Address [address] [facility] [address] 7t [place] [address] Care Team Providers Care Town Clerk Name Role Phone Elana Prince MD Primary Care Provider [phone] Encounter Details Date Type Department Care Team (Latest Contact Info) Description 11/23/2021 Abstract [facility] CONVERSIONS Dental, Provider, DDS Social History Tobacco [...] on filedocumented in this encounter Care Teams Town Clerk Relationship Specialty Start Date End Date Elana Prince MD [address] [place] [address] PCP - General Family Medicine 03/26/15 documented as of this encounter
--- OUTSIDE RECORDS SUMMARY | 2024-11-21 10:12 | XMS_ITS | Encounter Summary ---
Author Organization [employer] Address [address] [facility] [address] 7t [place] [address] Care Team Providers Care Neck Band Maker Name Role Phone Elana Prince MD Primary Care Provider [phone] Encounter Details Date Type Department Care Team ([facility] st Contact Info) Description 11/19/2024 Telephone [facility] 230 [place], [place] [phone] Daphne Serrano [place] Social History Tobacco Use [...] t he electric, gas, oil or water [employer] threatened to shut off services in your [...] documented as of this encounter Care Teams Neck Band Maker Relationship Specialty Start Date End Date Elana Prince MD 230 [place] [address] PCP - General Family Medicine 03/26/15 documented as of this encounter
--- OUTSIDE RECORDS SUMMARY | 2024-11-21 10:12 | XMS_ITS | Clinical Summary ---
Author Organization [employer] [facility] ity Address [address] [place] [address] Care Team Providers Care Script Artist Name Role Phone Unavailable Primary Care Provider Unavailabl e Social History Tobacco Use Types Packs/Day Years Used Date Smoking Tobacco: Never Assessed Comments Unknown Sex and Gender Information Value Date Recorded Sex Assigned at Not on file Legal Sex Female 10:43 AM EST Gender Identity Not on file Sexual Orientation Not on file Obstetrics History Plan of Treatment Health Maintenance Due Date Last Done Comments DTaP,Tdap,and Td Vaccines (1 - Tdap) 06/17/2011 Hepatitis B Vaccines (1 of 3 - 19+ 3-dose series) 06/17/2011 Cervical Cancer Screening: P ap Smear 2013 Depression Screening 03/12/2024 COVID-19 Vaccine ( - 2023-2 5 season) 2024 Influenza Vaccine (#1) 2024 HIB Vaccines Aged Out No longer eligi ble based on patient's age to complete this topic HPV Vaccines Aged Out No longer eligi ble based on patient's age to complete this topic Hepatitis A Vaccines Aged Out No long er eligible based on patient's age to complete this topic IPV Vaccines Aged Out No longer eligi ble based on patient's age to complete this topic MMR Vaccines Aged Out No longer eligi ble based on patient's age to complete this topic Meningococcal ACWY Vaccine Aged Out N o longer eligible based on patient's age to complete this topic Meningococcal B Vaccine Aged Out No l onger eligible based on patient's age to complete this topic Pneumococcal Vaccine: Pediat rics (0 to 5 Years) and At-Risk Patients (6 to 49 Years) Aged Out No longer eligible b ased on patient's age to complete this topic RSV Immunization Patients Un rosa 20 months Aged Out No longer eligible b ased on patient's age to complete this topic Varicella Vaccines Aged Out No longer eligible based on patient's age to complete this topic
--- OUTSIDE RECORDS SUMMARY | 2024-11-21 10:12 | XMS_ITS | Encounter Summary ---
Author Organization [employer] Address [address] [facility] [address] 7t [place] [address] Care Team Providers Care Customer Response Representative Name Role Phone Elana Prince MD Primary Care Provider Encounter Details Date Type Department Care Team ([facility] st Contact Info) Description 10/27/2024 Orders Only [facility] MEDICINE 230 [place], [place] [phone] Elana Prince MD 230 [place], [place] [phone] Social History Tobacco Use Types Packs/Day Years [...] documented as of this encounter Care Teams Customer Response Representative Relationship Specialty Start Date End Date Elana Prince MD 230 [place] [address] PCP - General Family Medicine 03/26/15 documented as of this encounter
--- OUTSIDE RECORDS SUMMARY | 2024-11-21 10:12 | XMS_ITS | Encounter Summary ---
Author Organization [employer] Address [address] [facility] [address] 7t [place] [address] Care Team Providers Care Squilgeer Name Role Phone Elana Prince MD Primary Care Provider [phone] Encounter Details Date Type Department Care Team ([facility] st Contact Info) Description 03/14/2024 Orders Only [facility] MEDICINE 230 [place], [place] [phone] Elana Prince MD 230 [place], [place] [phone] Social History Tobacco Use Types Packs/Day Years [...] documented as of this encounter Care Teams Squilgeer Relationship Specialty Start Date End Date Elana Prince MD [address] [place] [address] PCP - General Family Medicine 03/26/15 documented as of this encounter
--- OUTSIDE RECORDS SUMMARY | 2024-11-21 10:12 | XMS_ITS | Encounter Summary ---
Author Organization [employer] Address 75 [facility] 7t [place] [address] Care Team Providers Care Special Services Agent Name Role Phone Elana Prince MD Primary Care Provider Encounter Details Date Type Department Care Team (Latest Contact Info) Description 09/03/2020 Abstract [facility] CONVERSIONS Dental, Provider, DDS Social History Tobacco [...] on filedocumented in this encounter Care Teams Special Services Agent Relationship Specialty Start Date End Date Elana Prince MD [address] [place] [address] PCP - General Family Medicine 03/26/15 documented as of this encounter
--- OUTSIDE RECORDS SUMMARY | 2024-11-21 10:12 | XMS_ITS | Encounter Summary ---
Author Organization [employer] Address [address] [facility] [address] 7t [place] [address] Care Team Providers Care Podiatric Medicine Doctor Name Role Phone Elana Prince MD Primary Care Provider [phone] Reason for Visit * Reason Onset Date Comments Med Refill 06/30/2024 Encounter Details Date Type Department Care Team ([facility] st Contact Info) Description 06/30/[address] [facility] MEDICINE 230 [place], [place] [phone] Elana Prince MD 230 [place], [place] [phone] Social History Tobacco Use Types Packs/Day Years [...] documented as of this encounter Care Teams Podiatric Medicine Doctor Relationship Specialty Start Date End Date Elana Prince MD [address] [place] [address] PCP - General Family Medicine 03/26/15 documented as of this encounter
--- OUTSIDE RECORDS SUMMARY | 2024-11-21 10:12 | XMS_ITS | Encounter Summary ---
Author Organization [employer] Address [address] [facility] [address] 7t [place] [address] Care Team Providers Care Client Service Coordinator Name Role Phone Ealna Prince MD Primary Care Provider [phone] Reason for Visit * Reason Comments Med Refill Encounter Details Date Type Department Care Team ([facility] st Contact Info) Description 10/26/2024 Refill [facility] MEDICINE 230 [place], [place] [phone] Elana Prince MD 230 [place], [place] [phone] Social History Tobacco Use Types Packs/Day Years [...] documented as of this encounter Care Teams Client Service Coordinator Relationship Specialty Start Date End Date Elana Prince MD 230 [place] [address] PCP - General Family Medicine 03/26/15 documented as of this encounter
--- OUTSIDE RECORDS SUMMARY | 2024-11-21 10:12 | XMS_ITS | Clinical Summary ---
Author Organization [employer] Address [address] [facility] [address] 7t [place] [address] Care Team Providers Care Household Appliances Salesperson Name Role Phone Elana Prince MD Primary Care Provider [phone] Allergies No known active allergies Medications * [...] was her favorite activity [place]. Chronic pain of both shoulders [...] 6:56 AM EDT): - recently seen by [facility], and treated for presumptive PID - [...] was her favorite activity [place]. Assessment & Plan (03/28/2024 4:12 [...] was her favorite activity [place]. Assessment & Plan (06/17/2023 6:49 [...] was her favorite activity [place]. Obesity 11/01/2012 Assessment & Plan [...] Description 11/20/2024 1:00 PM EDT Office Visit [facility] [place] [address] Matt Lomeli CNM , unspecified gestational age (Primary Dx) 11/20/2024 Travel 11/19/2024 Telephone [facility] [place] [address] Daphne Serrano [place] 11/13/2024 Travel 10/27/2024 Orders Only [facility] [place] [address] Elana Prince MD 10/26/2024 Refill [facility] MED[facility]INE 230 [place] [address] Elana Prince MD 10/22/2024 Telephone [facility] [place] [address] Matt Lomeli CNM December recall 10/14/2024 Telephone [facility] [address] [place] [address] Elana Prince MD 10/06/2024 Telephone [facility] [place] [address] Elana Prince MD 10/03/2024 Telephone [facility] 230 [place] [address] Elana Prince MD Chart Prep from Last [...] (BMI) of 40.0 to 44.9 in adult ([facility]) THINPREP IMAGING PAP AND HPV MRNA E6/E7 [...] EDT Narrative 11/20/2024 6:24 PM EDT [address] [address] Ultrasound Report Signed Patient: Janice Joseph MR#: [id number] : 1990 Acct:[id number] Age/Sex: 34 / F ADM Date: 11/20/24 Loc: HO.US Attending Dr: Matt Lomeli CNM Ordering Physician: MATT LOMELI CNM Date of Service: 11/20/24 Procedure(s): US OB limited Accession Number(s): [id number] cc: MATT LOMELI CNM Reason for Exam: [...] in OV> 11/20/241823 DD/ 22 TD/TT: 11/20/241822 Operator Technician: Procedure Note Donotuseinterpreter, Image - 11/20/2024 [place] [address] Ultrasound Report Signed Patient: Janice Joseph#: [id number] : 1990Acct:[id number] Age/Sex: 34 / FADM Date: 11/20/24 Loc: HO.US Attending Dr: Matt Lomeli CNM Ordering Physician: MATT LOMELI CNM Date of Service: 11/20/24 Procedure(s): US OB limited Accession Number(s): [id number] cc: MATT LOMELI CNM Reason for Exam: [...] in OV> 11/20/241823 DD/ 22 TD/TT: 11/20/241822 Operator Technician: Matt Lomeli CNM IMG OB US PROCEDURES [...] 10:42 AM EST) Triglycerides 75 <150 mg/dL [facility] Comment:Desirable Triglyceri de: less than 150 mg/dLBorderline High Triglyceride 150-199 mg/dLHigh Triglyceride: 200-499 mg/dLVery High Triglyceride: greater than or equal to 5OO mg/dL Cholesterol 137 <200 mg/dL [facility] Comment:Desirable Cholestero l: less than 200 mg/dLBorderline High Cholesterol: 200-239 mg/dLHigh Cholesterol: greater than 239 mg/dL LDL Cholesterol Calculated 80 <100 mg/dL [facility] Comment:Desirable LDL: less than 100 mg/dLNear Optimal/Above Optimal LDL: 110- 129 mg/dLBorderline High LDL: 130-159 mg/dLHigh LDL: 160-189 mg/dLVery High LDL: greater than or equal to 190 mg/dL HDL Cholesterol 42 >40 mg/dL [facility] Comment:Desirable HDL: great er than 40 mg/dL Note: This HDL assay may give artificially low results in patients with liver disease. Blood 03/19/2024 10:4 2 AM EST 03/19/2024 11:07 AM EST us Elana Prince MD LAB BLOOD ORDERABLES Final Resul t [facility] [address] [place] [phone] * ThinPrep Imaging Pap and HPV mRNA E6/E7 (12/19/2023 10:44 AM EDT) HPV nRNA E6/E7 Not Detected Not Detected [facility] Comment:Methodology: Transcr iption-Mediated AmplificationThis assay detects E6/E7 viral messenger RNA (mRNA) from 14high-risk HPV types (16,18,31,33,35,39,45,51,52,56,58,59,66,68).Cervical sources are required for HPV testing.If a vaginal source from a patient who has had atotal hysterectomy with removal of cervix wassubmitted, please contact the testing laboratoryfor alternative testing options.For additional information, please refer tohttp://education.Expert/faq/KVB068d0(This link if provided for information/educational purposes only.)THIS TEST WAS PERFORMED AT:[facility] [place] [phone] WHITEHEAD MD SOURCE: SEE NOTE [facility] Comment:Cervix Report Status: TNP [facility] Clinical Information: SEE NOTE [facility] Comment:None given LMP: SEE NOTE [facility] Comment:NONE GIVEN Prev. PAP: SEE NOTE [facility] Comment:NONE GIVEN Prev. BX: SEE NOTE [facility] Comment:NONE GIVEN Statement Of Adequacy: SEE NOTE [facility] Comment:Satisfactory for gurpreet luation.Endocervical/transformation zone componentpresent. General Categorization: [facility] Interpretation/Result: SEE NOTE [facility] Comment:Cytology Results: Ne gative for intraepitheliallesion or malignancy. Cytology Comment SEE NOTE [facility] Comment:This Pap test has be en evaluated with computerassisted technology. Foreign Language Instructor: SEE NOTE [facility] Comment:DMM, CT(ASCP)CT scre ening location: [place] [address] Review Foreign Language Instructor: [facility] Pathologist [facility] PAP Infection SEE NOTE [facility] Comment:Shift in vaginal sandeep ra suggestive of bacterialvaginosis. See Note SEE NOTE [facility] Comment:EXPLANATORY NOTE:The Pap is a screening test for cervical cancer. It isnot a diagnostic test and is subject to false negativeand false positive results. It is most reliable when asatisfactory sample, regularly obtained, is submittedwith relevant clinical findings and history, and whenthe Pap result is evaluated along with historic andcurrent clinical information. 12/19/2023 10:4 4 AM EDT 12/19/2023 4:47 PM EDT Narrative [facility] - 12/25/2023 2:37 PM EDT SEE SCANNED RESULTS IN EMRCERVIX us Matt Lomeli CNM LAB PATHOLOGY ORDERABLES Final Result [facility] [address] [place] [address] [phone] * Hepatitis C Antibody (06/18/2020 3:55 PM EDT) Pathologist [facility] Hepatitis C Antibody Nonreactive Nonreactive [facility] Comment: Antibodies to HCV not detected; does not exclude early acute HCV infection. HIV AB/AG Nonreactive Nonreactive [facility] COUNT[facility] INCLUDE 234 BEDS AT THE [facility] Comment: HIV-1 p24 Ag and/or [...] of detection of this assay. [employer] Teacher HIV Ag/Ab Combo assay result and supplemental assay results should be interpreted in conjunction with the patient's clinical presentation, history and other laboratory results. If the results are inconsistent with clinical evidence, additional testing is suggested to confirm the result. Hepatitis B Surface Antigen Negative Negative [facility] 06/18/2020 3:55 PM EDT Nahomi Cyr HISTORICAL/NON ORDERABLE LABS Fi nal Result [facility] [address] from Last 3 Months or Most Recently Relevant to Health Maintenance Insurance [facility] C3 DENTAL-[facility] MEDICAID STAND ADULT Care Teams Household Appliances Salesperson Relationship Specialty Start Date End Date Elana Prince MD [address] [place] [address] PCP - General Family Medicine 03/26/15
--- OUTSIDE RECORDS SUMMARY | 2024-11-21 10:12 | XMS_ITS | Encounter Summary ---
Author Organization [employer] Address 75 [facility] 7t [place] [address] Care Team Providers Care Smalltalk Developer Name Role Phone Elana Prince MD Primary Care Provider [phone] Encounter Details Date Type Department Care Team ([facility] st Contact Info) Description 12/11/2022 Abstract [facility] MEDICINE 230 [place], [place] [phone] Elana Prince MD 230 [place], [place] [phone] Social History Tobacco Use Types Packs/Day Years [...] on filedocumented in this encounter Care Teams Smalltalk Developer Relationship Specialty Start Date End Date Elana Prince MD [address] [place] [address] PCP - General Family Medicine 03/26/15 documented as of this encounter
--- OUTSIDE RECORDS SUMMARY | 2024-11-21 10:12 | XMS_ITS | Encounter Summary ---
Author Organization [employer] Address [address] [facility] [address] 7t [place] [address] Care Team Providers Care Anthropology Department Chair Name Role Phone Elana Prince MD Primary Care Provider [phone] Encounter Details Date Type Department Care Team [...] documented as of this encounter Care Teams Anthropology Department Chair Relationship Specialty Start Date End Date Elana Prince MD 230 [place] [address] PCP - General Family Medicine 03/26/15 documented as of this encounter
--- OUTSIDE RECORDS SUMMARY | 2024-11-21 10:12 | XMS_ITS | Encounter Summary ---
Author Organization [employer] Address [address] [facility] [address] 7t [place] [address] Care Team Providers Care Db2 Dba Name Role Phone Elana Prince MD Primary Care Provider [phone] Encounter Details Date Type Department Care Team ([facility] st Contact Info) Description 07/23/2024 Orders Only [facility] MEDICINE 230 [place], [place] [phone] Elana Prince MD 230 [place], [place] [phone] Social History Tobacco Use Types Packs/Day Years [...] documented as of this encounter Care Teams Db2 Dba Relationship Specialty Start Date End Date Elana Prince MD 230 [place] [address] PCP - General Family Medicine 03/26/15 documented as of this encounter
--- OUTSIDE RECORDS SUMMARY | 2024-11-21 10:12 | XMS_ITS | Encounter Summary ---
Author Organization [employer] Address 75 [facility] 7t [place] [address] Care Team Providers Care Piccoloist Name Role Phone Elana Prince MD Primary Care Provider [phone] Reason for Visit * Reason Onset Date Comments Med Refill 04/07/2024 Encounter Details Date Type Department Care Team ([facility] st Contact Info) Description 04/07/2024 Refill [facility] MEDICINE 230 [place], [place] [phone] Elana Prince MD 230 [place], [place] [phone] Social History Tobacco Use Types Packs/Day Years [...] documented as of this encounter Care Teams Piccoloist Relationship Specialty Start Date End Date Elana Prince MD [address] [place] [address] PCP - General Family Medicine 03/26/15 documented as of this encounter
--- OUTSIDE RECORDS SUMMARY | 2024-11-21 10:12 | XMS_ITS | Encounter Summary ---
Author Organization [employer] Address [address] [facility] [address]t [place] [address] Care Team Providers Care Decision Science Analyst Name Role Phone Elana Prince MD Primary Care Provider [phone] Reason for Visit * Reason Onset Date Comments Referral 08/13/2024 Encounter Details Date Type Department Care Team ([facility] st Contact Info) Description 08/13/2024 Telephone [facility] MEDICINE 230 [place] [address] Elana Prince MD 230 [place], [place] [phone] Referral Social History Tobacco Use Types Packs/Day [...] 12:26 PM EDT Triage call with BSL catalyst concentration operator ID [id number] Pt reports has been having pelvic pain, [...] again and to obtain a referral to [facility] in [facility]. Ptis advised will forward this request to [...] Tc from pt requesting new referral for [facility] ANA[facility]ST and us pelvis transvaginal due pelvic pain. documented in this encounter Plan of Treatment Not on file documented as of this encounter Visit Diagnoses Not on filedocumented in this encounter Additional Health Concerns Assessment Noted Time PHQ-9 Depression Total Score: 15 025 9:53 AM EST documented as of this encounter Care Teams Decision Science Analyst Relationship Specialty Start Date End Date Elana Prince MD 230 [place] [address] PCP - General Family Medicine 03/26/15 documented as of this encounter
--- OUTSIDE RECORDS SUMMARY | 2024-11-21 10:12 | XMS_ITS | Encounter Summary ---
Author Organization [employer] Address [address] [facility] [address]t [place] [address] Care Team Providers Care Lead Case Manager Name Role Phone Elana Prince MD Primary Care Provider [phone] Reason for Visit * Reason Onset Date Comments Med Refill 06/30/2024 Encounter Details Date Type Department Care Team ([facility] st Contact Info) Description 06/30/2024 Refill [facility] MEDICINE 230 [place], [place] [phone] Sylvie Keen CNM 230 [place] [address] Social History Tobacco Use Types Packs/Day Years [...] documented as of this encounter Care Teams Lead Case Manager Relationship Specialty Start Date End Date Elana Prince MD [address] [place] [address] PCP - General Family Medicine 03/26/15 documented as of this encounter
--- OUTSIDE RECORDS SUMMARY | 2024-11-21 10:12 | XMS_ITS | Encounter Summary ---
Author Organization [employer] Address [address] [place] [address] [address] [place] [address] Care Team Providers Care Poundmaster Name Role Phone Elana Prince MD Primary Care Provider [phone] Reason for Referral * Neurology (Routine) - Closed Specialty Diagnoses / Procedures Referred By Contradha t Referred To Contact Diagnoses Bilateral hand numbness Procedures EMG Elana Prince MD [address] [place] [address] Phone: tel: fax: [address] Phone: tel: fax: Referral ID Status Reason Start Date Expiration Date Visits Re quested Visits Authorized [id number] Closed 08/07/2024 08/07/2025 1 1 Encounter Details Date Type Department Care Team (Late st Contact Info) Description 08/07/2024 Orders Only [facility] [address] [place], [place] [phone] Elana Prince MD [address] [place] [address] Bilateral hand numbness (Primary Dx) [...] documented as of this encounter Care Teams Poundmaster Relationship Specialty Start Date End Date Elana Pricne MD [address] [place] [id number] PCP - General Family Medicine 03/26/15 documented as of this encounter
--- OUTSIDE RECORDS SUMMARY | 2024-11-21 10:12 | XMS_ITS | Clinical Summary ---
Author Organization [facility] Address [address] [place] [phone] Phone Care Team Providers Care Pediatric Lpn Name Role Phone Elana Prince MD Primary Care Provider Allergies No known active allergies Medications No known medications Encounters Date Type Department Care Team Description 11/18/2024 9:30 AM EDT Office Visit [facility] [address] [place] [address] Elana Prince MD Clark, Elly Rodriguez, PT Verea, Gilmer Cervical radiculopathy (Primary Dx) 11/11/2024 9:30 AM EDT Office Visit [facility] [address] [place] [address] Elana Prince MD Clark, Elly Rodriguez, PT [...] Description 11/25/2024 9:15 AM EDT Office Visit [address] [address] Elana Prince MD [address] [place] [address] Sukhdev Luo, OCCUPATIONAL PSYCHOLOGIST [address] [place] [address] Gilmer Fowler [address] [place] [address] 11/27/2024 9:15 AM EDT Office Visit [address] [address] Elana Prince MD [address] [place] [address] Sukhdev Luo, OCCUPATIONAL PSYCHOLOGIST [address] [place] [address] Mone Clayton [address] [place] [address] 12/02/2024 9:30 AM EDT Office Visit [facility] [address] [place] [address] Elana Prince MD [address] [place] [address] Elly Bronson, PT [address] [place] [address] Gilmer Fowler [address] [place] [address] 12/04/2024 9:30 AM EDT Office Visit [facility] [address] [place] [address] Elana Prince MD [address] [place] [address] Elly Bronson, PT [address] [place] [address] 12/09/2024 9:30 AM EDT Office Visit [facility] [address] [place] [address] Elana Prince MD [address] [place] [address] Elly Bronson, PT [address] [place] [address] Health Maintenance Due Date Last Done Comments [...] Date/Time Associated Diagnosis Comments AMB REFERRAL TO [facility] Routine 11/11/2024 1:16 PM EDT Encounter for rehabilitation from Last 3 Months Results * Ambulatory referral to [facility] Physical Therapy (11/11/2024 1:16 PM EDT) Other us Elana Prince MD AMB [facility] RE[facility] Final Result from Last 3 Months Insurance [facility] C[employer] [facility] C[address] [place] [address] [place] [address] C3 [employer] [facility] C3 ACO [facility] C3 A[employer] [facility] C3 ACO Care Teams Pediatric Lpn Relationship Specialty Start Date End Date Elana Prince MD [address] [place] [phone] PCP - General Family Medicine 07/31/24 Additional Source Comments The information contained in this document represents components of the legal health record. It is not the complete legal health record.[facility]
== END 2024-11-21 09:16 | disposition home or self-care (01) ==
LOC: HO.HHCL 09:15
PROVIDERS: PCP Family Medicine; Visit Provider Advanced Practice Midwife
DX: Z34.90 Encounter for supervision of normal pregnancy, unspecified, unspecified trimester (principal)
CPT/HCPCS: 36415; 84702